=== PATIENT | female | born 1960 | race Caucasian/White ===

== ENCOUNTER 2017-02-20 20:46 | Emergency (ER) | payer OTHER ==
[~2017-02-20] VITALS: Ht 162.6 cm; Wt 63.6 kg
[~2017-02-20 20:46] MED LIST: ALLO100T PO; ATEN100T PO; ATOR40TA28 PO; CLOP75 PO; FAMO20 PO; FISH OIL/SALMO500 MG PO; FOLI1 PO; GEMF600T3 PO; NIAC100T3 PO; SERT50TA PO; SEVEC800 PO; SODI650T PO; VITAD1000 PO
[2017-02-20] MEDS ORDERED: FERR-89 PO (21:07)
[2017-02-20] MEDS ORDERED: FLUT16H NASAL (21:07)
[2017-02-20] MEDS ORDERED: COMB5OS OU (21:07)
[2017-02-20 21:08] LABS: GLUCOSE,POINT OF CARE 166 MG/DL (70-110)
[2017-02-20 21:58] LABS: INFLUENZA TYPE A NEGATIVE FOR TYPE A (NEGATIVE); INFLUENZA TYPE B NEGATIVE FOR TYPE B (NEGATIVE)
[2017-02-21] MEDS ORDERED: ONDANSETRON HCL 4 MG TABLET PO ONE (02:45)
[2017-02-21] MEDS ORDERED: BENZONATATE 100 MG CAPSULE PO ONE (02:45)
[2017-02-21 03:30] VITALS: BP 133/76
[2017-02-21] MEDS ORDERED: AZITHROMYCIN 250 MG TABLET PO ONE (03:30)
== END 2017-02-21 04:25 | disposition home or self-care (01) ==
LOC: EMS 20:47
DX: J40 Bronchitis, not specified as acute or chronic (principal); I12.0 Hypertensive chronic kidney disease with stage 5 chronic kidney disease or end stage renal disease; E11.22 Type 2 diabetes mellitus with diabetic chronic kidney disease; N18.6 End stage renal disease; Z99.2 Dependence on renal dialysis; Z88.1 Allergy status to other antibiotic agents; Z88.8 Allergy status to other drugs, medicaments and biological substances
CPT/HCPCS: 71045; 82962; 87804; 99285; Q0162

== ENCOUNTER 2017-02-25 17:37 | Inpatient (IN) | payer OTHER ==
[~2017-02-25] VITALS: Ht 167.6 cm; Wt 65.0 kg
[~2017-02-25 17:37] MED LIST changes: -ATEN100T PO; -CLOP75 PO; +COMB5OS OU; -FAMO20 PO; +FERR-89 PO; -FISH OIL/SALMO500 MG PO; +FLUT16H NASAL; -GEMF600T3 PO; -NIAC100T3 PO; -SEVEC800 PO
[2017-02-25] MEDS ORDERED: SODIUM CHLORIDE 0.9% 1,000 ML IV ONE ×2 (19:00→20:45)
[2017-02-25] MEDS ORDERED: ONDANSETRON HCL 4 MG/2 ML VIAL IVP ONE (19:00)
[2017-02-25 20:06] LABS: HEMOGLOBIN 9.1 g/dL (12.0-16.0); MEAN CORPUSCULAR HEMOGLOBIN 31.2 pg (26.0-34.0); MEAN CORPUSCULAR HGB CONC 33.7 G/dL (31.0-37.0); MEAN CORPUSCULAR VOLUME 93 fL (80-100); PLATELET COUNT (AUTO) 626 K/uL (150-450); RED BLOOD CELL COUNT(AUTO) 2.91 MIL/uL (4.00-5.20); RED CELL DISTRIBUTION WIDTH 15.5 % (11.5-14.5)
[2017-02-25] MEDS ORDERED: CefTRIAXone 1 GM/DEXTROSE 50 ML IV ONE (20:15)
[2017-02-25] MEDS ORDERED: MetroNIDAZOLE 500 MG/NACL 100 ML IV ONE (20:15)
[2017-02-25 20:47] LABS: CALCIUM, TOTAL 9.9 mg/dL (8.8-10.5); CREATININE 5.06 mg/dL (0.60-1.30); POTASSIUM 3.4 mmol/L (3.5-5.1)
[2017-02-25 20:48] LABS: ALBUMIN 2.1 g/dL (3.4-5.0); TOTAL PROTEIN, SERUM 7.8 g/dL (6.4-8.2)
[2017-02-25 21:22] LABS: BAND NEUTROPHILS % (MANUAL) 19 % (1-5); LYMPHOCYTES % (MANUAL) 5 % (22-44); MONOCYTES % (MANUAL) 4 % (2-9); SEGMENTED NEUTROPHILS % 72 % (40-70)
[2017-02-25 21:23] LABS: WBC MORPHOLOGY TOXIC GRANULATION
[2017-02-25] MEDS ORDERED: SODIUM CHLORIDE 0.9% 250 ML IV ONE (21:25)
[2017-02-25 21:44] VITALS: BP 121/61
[2017-02-26 00:08] LABS: GLUCOMETER DEV NAME(LOC) 6N 2D; GLUCOSE,POINT OF CARE 141 MG/DL (70-110)
[2017-02-26] MEDS: BRIMONIDINE/TIMOLOL 0.2-0.5% 5 ML OPHTHALMIC SOLUTION OU SCH ×3 (01:45→20:49)
[2017-02-26] MEDS ORDERED: OxyCODONE HCL/ACETAMINOPHEN 5-325 MG TABLET PO PRN (01:45)
[2017-02-26] MEDS: DOCUSATE SODIUM 100 MG CAPSULE PO SCH ×3 (01:45→20:49)
[2017-02-26] MEDS ORDERED: 0.9% SODIUM CHLORIDE 10 ML SYRINGE IVP PRN (01:45)
[2017-02-26] MEDS ORDERED: ONDANSETRON HCL 4 MG/2 ML VIAL IVP PRN (01:45)
[2017-02-26] MEDS ORDERED: PIPERACILLIN SODIUM/TAZOBACTAM 0.75 GM in DEXTROSE 5%-WATER 50 ML IV PRN (02:30)
[2017-02-26] MEDS ORDERED: VANCOMYCIN HCL 1 GM/D5% WATER 200 ML IV PRN (02:30)
[2017-02-26] MEDS ORDERED: VANCOMYCIN HCL 1.25 GM in DEXTROSE 5%-WATER 250 ML IV ONE (03:00)
[2017-02-26 03:37] VITALS: BP 105/59
[2017-02-26] MEDS ORDERED: PIPERACILLIN SODIUM/TAZOBACTAM 2.25 GM in DEXTROSE 5%-WATER 50 ML IV SCH (06:00)
[2017-02-26 06:13] LABS: GLUCOMETER DEV NAME(LOC) 6N 1E; GLUCOSE,POINT OF CARE 145 MG/DL (70-110)
[2017-02-26 07:44] VITALS: BP 113/68
[2017-02-26] MEDS ORDERED: SODIUM BICARBONATE 650 MG TABLET PO SCH (09:00)
[2017-02-26] MEDS: ATORVASTATIN CALCIUM 40 MG TABLET PO SCH (09:16)
[2017-02-26] MEDS: PANTOPRAZOLE SODIUM 40 MG/VIAL IVP SCH (09:16)
[2017-02-26] MEDS: FERROUS SULFATE 325 MG EC TABLET PO SCH (09:16)
[2017-02-26] MEDS: CHOLECALCIFEROL (VIT D3) 1,000 UNITS TABLET PO SCH (09:16)
[2017-02-26] MEDS: ALLOPURINOL 100 MG TABLET PO SCH (09:17)
[2017-02-26] MEDS: FLUTICASONE PROPIONATE 50 MCG/SPRAY 16 GM NASAL SPRAY NASAL SCH (09:17)
[2017-02-26] MEDS: SERTRALINE HCL 50 MG TABLET PO SCH (09:17)
[2017-02-26 11:27] VITALS: BP 86/44
[2017-02-26] MEDS ORDERED: POTASSIUM CHL 20 MEQ/0.9% NS 500 ML IV ONE (13:30)
[2017-02-26] MEDS ORDERED: DOXERCALCIFEROL 4 MCG/2 ML AMP IVP SCH (13:30)
[2017-02-26 15:24] VITALS: BP 105/60
[2017-02-26] MEDS: PIPERACILLIN SODIUM/TAZOBACTAM 2.25 GM in DEXTROSE 5%-WATER 50 ML IV SCH ×2 (15:57→22:12)
[2017-02-26 16:58] LABS: GLUCOMETER DEV NAME(LOC) 5N 2R; GLUCOSE,POINT OF CARE 191 MG/DL (70-110)
[2017-02-26 19:43] VITALS: BP 103/58
[2017-02-26 23:35] VITALS: BP 97/57
[2017-02-27 00:42] LABS: GLUCOMETER DEV NAME(LOC) 6N 1E; GLUCOSE,POINT OF CARE 177 MG/DL (70-110)
[2017-02-27 04:27] VITALS: BP 113/62
[2017-02-27] MEDS: PIPERACILLIN SODIUM/TAZOBACTAM 2.25 GM in DEXTROSE 5%-WATER 50 ML IV SCH ×3 (05:02→22:46)
[2017-02-27] MEDS ORDERED: SODIUM CHLORIDE 0.9% 250 ML IV ONE (06:12)
[2017-02-27 06:46] LABS: HEMATOCRIT 22.1 % (36-46); HEMOGLOBIN 7.3 g/dL (12.0-16.0); MEAN CORPUSCULAR HEMOGLOBIN 30.9 pg (26.0-34.0); MEAN CORPUSCULAR HGB CONC 33.1 G/dL (31.0-37.0); MEAN CORPUSCULAR VOLUME 93 fL (80-100); PLATELET COUNT (AUTO) 592 K/uL (150-450); RED BLOOD CELL COUNT(AUTO) 2.37 MIL/uL (4.00-5.20); RED CELL DISTRIBUTION WIDTH 15.5 % (11.5-14.5)
[2017-02-27 07:07] LABS: CALCIUM, TOTAL 9.1 mg/dL (8.8-10.5); CREATININE 6.35 mg/dL (0.60-1.30); POTASSIUM 3.8 mmol/L (3.5-5.1); VANCOMYCIN,RANDOM 22.7 mcg/mL (25.0-50.0)
[2017-02-27 07:26] VITALS: BP 110/74
[2017-02-27 07:37] LABS: GLUCOMETER DEV NAME(LOC) 6N 2D; GLUCOSE,POINT OF CARE 124 MG/DL (70-110)
[2017-02-27] MEDS: SERTRALINE HCL 50 MG TABLET PO SCH (08:28)
[2017-02-27] MEDS: PANTOPRAZOLE SODIUM 40 MG/VIAL IVP SCH (08:28)
[2017-02-27] MEDS: CHOLECALCIFEROL (VIT D3) 1,000 UNITS TABLET PO SCH (08:28)
[2017-02-27] MEDS: ALLOPURINOL 100 MG TABLET PO SCH (08:28)
[2017-02-27] MEDS: ATORVASTATIN CALCIUM 40 MG TABLET PO SCH (08:28)
[2017-02-27] MEDS: FLUTICASONE PROPIONATE 50 MCG/SPRAY 16 GM NASAL SPRAY NASAL SCH (08:28)
[2017-02-27] MEDS: BRIMONIDINE/TIMOLOL 0.2-0.5% 5 ML OPHTHALMIC SOLUTION OU SCH ×2 (08:29→19:49)
[2017-02-27] MEDS: FERROUS SULFATE 325 MG EC TABLET PO SCH (08:29)
[2017-02-27] MEDS: DOCUSATE SODIUM 100 MG CAPSULE PO SCH ×2 (08:29→19:48)
[2017-02-27 08:46] LABS: BAND NEUTROPHILS % (MANUAL) 5 % (1-5); BASOPHILS % (MANUAL) 1 % (0-2); LYMPHOCYTES % (MANUAL) 5 % (22-44); MONOCYTES % (MANUAL) 2 % (2-9); REACTIVE LYMPHOCYTES 1 % (0-0); SEGMENTED NEUTROPHILS % 86 % (40-70); WBC MORPHOLOGY TOXIC GRANULATION
[2017-02-27 15:34] VITALS: BP 114/60
[2017-02-27] MEDS ORDERED: LIDOCAINE HCL/PF 1% 2 ML VIAL INJ ONE (17:36)
[2017-02-27 19:48] LABS: GLUCOMETER DEV NAME(LOC) 6N 2D; GLUCOSE,POINT OF CARE 168 MG/DL (70-110)
[2017-02-27 20:10] VITALS: BP 109/57
[2017-02-27 20:43] VITALS: BP 126/87
[2017-02-27 20:57] LABS: GLUCOMETER DEV NAME(LOC) 6N 1E; GLUCOSE,POINT OF CARE 175 MG/DL (70-110)
[2017-02-27 23:39] VITALS: BP 114/59
[2017-02-28] VITALS (12 sets, daily range): BP systolic 85–126; BP diastolic 46–63
[2017-02-28] MEDS ORDERED: SODIUM CHLORIDE 0.9% 500 ML IV ONE (00:26)
[2017-02-28] MEDS: OxyCODONE HCL/ACETAMINOPHEN 5-325 MG TABLET PO PRN (05:00)
[2017-02-28] MEDS: PIPERACILLIN SODIUM/TAZOBACTAM 2.25 GM in DEXTROSE 5%-WATER 50 ML IV SCH ×3 (05:37→22:31)
[2017-02-28 07:03] LABS: GLUCOMETER DEV NAME(LOC) 5N 2R; GLUCOSE,POINT OF CARE 120 MG/DL (70-110)
[2017-02-28] MEDS ORDERED: VANCOMYCIN HCL 1 GM/D5% WATER 200 ML IV ONE (08:00)
[2017-02-28] MEDS: PANTOPRAZOLE SODIUM 40 MG/VIAL IVP SCH (08:32)
[2017-02-28] MEDS: BRIMONIDINE/TIMOLOL 0.2-0.5% 5 ML OPHTHALMIC SOLUTION OU SCH ×2 (08:34→19:59)
[2017-02-28] MEDS: FLUTICASONE PROPIONATE 50 MCG/SPRAY 16 GM NASAL SPRAY NASAL SCH (08:34)
[2017-02-28] MEDS: DOCUSATE SODIUM 100 MG CAPSULE PO SCH ×2 (09:00→20:00)
[2017-02-28 10:39] LABS: BASOPHILS % (AUTO) 0.1 % (0.0-2.0); EOSINOPHILS % (AUTO) 0 % (1.0-6.0); LYMPHOCYTES # (AUTO) 0.8 K/uL (1.0-4.8); LYMPHOCYTES % (AUTO) 4.3 % (22.0-44.0); MEAN CORPUSCULAR HEMOGLOBIN 31.3 pg (26.0-34.0); MEAN CORPUSCULAR HGB CONC 32.9 G/dL (31.0-37.0); MEAN CORPUSCULAR VOLUME 95 fL (80-100); MONOCYTES # (AUTO) 0.8 K/uL (0.1-1.0); MONOCYTES % (AUTO) 4.6 % (2.0-9.0); NEUTROPHILS # (AUTO) 16.8 K/uL (1.8-7.7); PLATELET COUNT (AUTO) 501 K/uL (150-450); RED BLOOD CELL COUNT(AUTO) 2.07 MIL/uL (4.00-5.20); RED CELL DISTRIBUTION WIDTH 15.5 % (11.5-14.5)
[2017-02-28 10:51] LABS: HEMATOCRIT 19.7 % (36-46); HEMOGLOBIN 6.5 g/dL (12.0-16.0)
[2017-02-28 11:53] LABS: GLUCOMETER DEV NAME(LOC) 6N 2D; GLUCOSE,POINT OF CARE 126 MG/DL (70-110)
[2017-02-28] MEDS: ALLOPURINOL 100 MG TABLET PO SCH (16:46)
[2017-02-28] MEDS: CHOLECALCIFEROL (VIT D3) 1,000 UNITS TABLET PO SCH (16:46)
[2017-02-28] MEDS: ATORVASTATIN CALCIUM 40 MG TABLET PO SCH (16:47)
[2017-02-28] MEDS: FERROUS SULFATE 325 MG EC TABLET PO SCH (16:47)
[2017-02-28] MEDS: SERTRALINE HCL 50 MG TABLET PO SCH (16:47)
[2017-02-28 17:38] LABS: GLUCOMETER DEV NAME(LOC) 6N 2D; GLUCOSE,POINT OF CARE 150 MG/DL (70-110)
[2017-03-01] VITALS (10 sets, daily range): BP systolic 95–143; BP diastolic 53–77
[2017-03-01] MEDS: ACETAMINOPHEN 325 MG TABLET PO PRN ×3 (00:14→23:42)
[2017-03-01] MEDS: PIPERACILLIN SODIUM/TAZOBACTAM 2.25 GM in DEXTROSE 5%-WATER 50 ML IV SCH ×3 (05:35→21:29)
[2017-03-01 06:38] LABS: GLUCOMETER DEV NAME(LOC) 6N 2D; GLUCOSE,POINT OF CARE 117 MG/DL (70-110)
[2017-03-01 06:43] LABS: HEMOGLOBIN 7.5 g/dL (12.0-16.0); MEAN CORPUSCULAR HEMOGLOBIN 30.6 pg (26.0-34.0); MEAN CORPUSCULAR HGB CONC 32.8 G/dL (31.0-37.0); MEAN CORPUSCULAR VOLUME 93 fL (80-100); PLATELET COUNT (AUTO) 537 K/uL (150-450); RED BLOOD CELL COUNT(AUTO) 2.46 MIL/uL (4.00-5.20); RED CELL DISTRIBUTION WIDTH 17.6 % (11.5-14.5)
[2017-03-01 06:53] LABS: INR 2.3 (0.9-1.1); PROTHROMBIN TIME 24.8 SEC (9.4-11.6)
[2017-03-01 07:04] LABS: % IRON SATURATION 15.8 % (22-44)
[2017-03-01 07:38] LABS: GLUCOMETER DEV NAME(LOC) 5N 2R; GLUCOSE,POINT OF CARE 143 MG/DL (70-110)
[2017-03-01] MEDS ORDERED: SODIUM CHLORIDE 0.9% 1,000 ML IV ONE (08:19)
[2017-03-01 10:44] LABS: BAND NEUTROPHILS % (MANUAL) 6 % (1-5); EOSINOPHILS % (MANUAL) 1 % (1-6); LYMPHOCYTES % (MANUAL) 2 % (22-44); MONOCYTES % (MANUAL) 5 % (2-9); SEGMENTED NEUTROPHILS % 86 % (40-70)
[2017-03-01] MEDS: ATORVASTATIN CALCIUM 40 MG TABLET PO SCH (14:59)
[2017-03-01] MEDS: PANTOPRAZOLE SODIUM 40 MG/VIAL IVP SCH (14:59)
[2017-03-01] MEDS: CHOLECALCIFEROL (VIT D3) 1,000 UNITS TABLET PO SCH (14:59)
[2017-03-01] MEDS: ALLOPURINOL 100 MG TABLET PO SCH (14:59)
[2017-03-01] MEDS: FERROUS SULFATE 325 MG EC TABLET PO SCH (14:59)
[2017-03-01] MEDS: FLUTICASONE PROPIONATE 50 MCG/SPRAY 16 GM NASAL SPRAY NASAL SCH (15:00)
[2017-03-01] MEDS: BRIMONIDINE/TIMOLOL 0.2-0.5% 5 ML OPHTHALMIC SOLUTION OU SCH ×2 (15:01→20:04)
[2017-03-01] MEDS: SERTRALINE HCL 50 MG TABLET PO SCH (15:02)
[2017-03-01] MEDS: EPOETIN ALFA 10,000 UNITS/ML 2 ML VIAL SQ SCH (15:02)
[2017-03-01] MEDS: DOCUSATE SODIUM 100 MG CAPSULE PO SCH ×2 (15:05→20:03)
[2017-03-01] MEDS ORDERED: SODIUM CHLORIDE 0.9% 250 ML IV ONE (15:47)
[2017-03-01 16:33] LABS: GLUCOMETER DEV NAME(LOC) 6N 1E; GLUCOSE,POINT OF CARE 78 MG/DL (70-110)
[2017-03-01] MEDS ORDERED: GuaiFENesin [SUGAR-FREE] 200 MG/10 ML SOLUTION UDCUP PO SCH (18:00)
[2017-03-01] MEDS ORDERED: LIDOCAINE HCL/PF 1% 2 ML VIAL IM ONE (18:15)
[2017-03-01 19:38] LABS: GLUCOMETER DEV NAME(LOC) 6N 2D; GLUCOSE,POINT OF CARE 125 MG/DL (70-110)
[2017-03-01] MEDS: GuaiFENesin [SUGAR-FREE] 200 MG/10 ML SOLUTION UDCUP PO PRN (21:08)
[2017-03-01] MEDS ORDERED: SODIUM CHLORIDE 0.9% 500 ML IV ONE (21:20)
[2017-03-01 21:22] LABS: GLUCOMETER DEV NAME(LOC) 6N 2D; GLUCOSE,POINT OF CARE 174 MG/DL (70-110)
[2017-03-02] VITALS (11 sets, daily range): BP systolic 92–128; BP diastolic 43–66
[2017-03-02] MEDS: PIPERACILLIN SODIUM/TAZOBACTAM 2.25 GM in DEXTROSE 5%-WATER 50 ML IV SCH ×3 (05:39→21:35)
[2017-03-02 07:17] LABS: GLUCOMETER DEV NAME(LOC) 6N 1E; GLUCOSE,POINT OF CARE 143 MG/DL (70-110)
[2017-03-02 07:18] LABS: INR 2.3 (0.9-1.1); PROTHROMBIN TIME 24.1 SEC (9.4-11.6)
[2017-03-02] MEDS: BRIMONIDINE/TIMOLOL 0.2-0.5% 5 ML OPHTHALMIC SOLUTION OU SCH ×2 (09:04→20:43)
[2017-03-02] MEDS: GuaiFENesin [SUGAR-FREE] 200 MG/10 ML SOLUTION UDCUP PO PRN ×2 (09:04→21:35)
[2017-03-02] MEDS: FLUTICASONE PROPIONATE 50 MCG/SPRAY 16 GM NASAL SPRAY NASAL SCH (09:04)
[2017-03-02] MEDS: PANTOPRAZOLE SODIUM 40 MG/VIAL IVP SCH (09:04)
[2017-03-02] MEDS: CHOLECALCIFEROL (VIT D3) 1,000 UNITS TABLET PO SCH (09:05)
[2017-03-02] MEDS: FERROUS SULFATE 325 MG EC TABLET PO SCH (09:05)
[2017-03-02] MEDS: ALLOPURINOL 100 MG TABLET PO SCH (09:05)
[2017-03-02] MEDS: SERTRALINE HCL 50 MG TABLET PO SCH (09:05)
[2017-03-02] MEDS: ATORVASTATIN CALCIUM 40 MG TABLET PO SCH (09:06)
[2017-03-02] MEDS: OxyCODONE HCL/ACETAMINOPHEN 5-325 MG TABLET PO PRN (09:06)
[2017-03-02] MEDS: DOCUSATE SODIUM 100 MG CAPSULE PO SCH ×2 (09:06→20:43)
[2017-03-02 11:52] LABS: GLUCOMETER DEV NAME(LOC) 5N 2R; GLUCOSE,POINT OF CARE 147 MG/DL (70-110)
[2017-03-02] MEDS: PHYTONADIONE 10 MG/1 ML AMP IM SCH (18:32)
[2017-03-02 20:07] LABS: GLUCOMETER DEV NAME(LOC) 6N 1E; GLUCOSE,POINT OF CARE 113 MG/DL (70-110)
[2017-03-02] MEDS: ACETAMINOPHEN 325 MG TABLET PO PRN (21:32)
[2017-03-02 22:12] LABS: GLUCOMETER DEV NAME(LOC) 5N 2R; GLUCOSE,POINT OF CARE 152 MG/DL (70-110)
[2017-03-02] MEDS ORDERED: SODIUM CHLORIDE 0.9% 500 ML IV ONE (22:28)
[2017-03-03] VITALS (20 sets, daily range): BP systolic 85–135; BP diastolic 49–77
[2017-03-03] MEDS: PIPERACILLIN SODIUM/TAZOBACTAM 2.25 GM in DEXTROSE 5%-WATER 50 ML IV SCH ×3 (05:14→22:30)
[2017-03-03 05:57] LABS: GLUCOMETER DEV NAME(LOC) 5N 2R; GLUCOSE,POINT OF CARE 98 MG/DL (70-110)
[2017-03-03 06:49] LABS: INR 1.3 (0.9-1.1); PROTHROMBIN TIME 13.6 SEC (9.4-11.6)
[2017-03-03 07:03] LABS: BASOPHILS % (AUTO) 0.2 % (0.0-2.0); EOSINOPHILS % (AUTO) 0.9 % (1.0-6.0); LYMPHOCYTES # (AUTO) 0.9 K/uL (1.0-4.8); LYMPHOCYTES % (AUTO) 4.7 % (22.0-44.0); MEAN CORPUSCULAR HGB CONC 32.8 G/dL (31.0-37.0); MEAN CORPUSCULAR VOLUME 92 fL (80-100); MONOCYTES # (AUTO) 0.7 K/uL (0.1-1.0); MONOCYTES % (AUTO) 3.7 % (2.0-9.0); PLATELET COUNT (AUTO) 620 K/uL (150-450); RED BLOOD CELL COUNT(AUTO) 2.27 MIL/uL (4.00-5.20); RED CELL DISTRIBUTION WIDTH 16.7 % (11.5-14.5)
[2017-03-03 07:09] LABS: HEMOGLOBIN 6.8 g/dL (12.0-16.0)
[2017-03-03 07:10] LABS: HEMATOCRIT 20.8 % (36-46); NEUTROPHILS % (AUTO) 90.5 % (40.0-70.0)
[2017-03-03 07:16] LABS: ALBUMIN 1.6 g/dL (3.4-5.0); BILIRUBIN,TOTAL 0.6 mg/dL (0.1-1.0); CALCIUM, TOTAL 9.2 mg/dL (8.8-10.5); CREATININE 4.74 mg/dL (0.60-1.30); POTASSIUM 3.3 mmol/L (3.5-5.1); TOTAL PROTEIN, SERUM 6.2 g/dL (6.4-8.2)
[2017-03-03 08:09] LABS: VANCOMYCIN,RANDOM 17.6 mcg/mL (25.0-50.0)
[2017-03-03] MEDS ORDERED: MIDAZOLAM HCL 2 MG/2 ML VIAL ONE (08:42)
[2017-03-03] MEDS ORDERED: FentaNYL CITRATE-PF 100 MCG/2 ML VIAL ONE (08:43)
[2017-03-03] MEDS: PHYTONADIONE 10 MG/1 ML AMP IM SCH (09:00)
[2017-03-03] MEDS ORDERED: MIDAZOLAM HCL 2 MG/2 ML VIAL IVP ONE (09:55)
[2017-03-03] MEDS ORDERED: SODIUM CHLORIDE 0.9% 500 ML IV ONE (10:05)
[2017-03-03] MEDS: FLUTICASONE PROPIONATE 50 MCG/SPRAY 16 GM NASAL SPRAY NASAL SCH (10:51)
[2017-03-03] MEDS: CHOLECALCIFEROL (VIT D3) 1,000 UNITS TABLET PO SCH (10:51)
[2017-03-03] MEDS: PANTOPRAZOLE SODIUM 40 MG/VIAL IVP SCH (10:52)
[2017-03-03] MEDS: BRIMONIDINE/TIMOLOL 0.2-0.5% 5 ML OPHTHALMIC SOLUTION OU SCH ×2 (10:52→20:07)
[2017-03-03] MEDS: ATORVASTATIN CALCIUM 40 MG TABLET PO SCH (10:52)
[2017-03-03] MEDS: ALLOPURINOL 100 MG TABLET PO SCH (10:52)
[2017-03-03] MEDS: SERTRALINE HCL 50 MG TABLET PO SCH (10:52)
[2017-03-03] MEDS: FERROUS SULFATE 325 MG EC TABLET PO SCH (10:52)
[2017-03-03] MEDS: EPOETIN ALFA 10,000 UNITS/ML 2 ML VIAL SQ SCH (10:54)
[2017-03-03] MEDS: DOCUSATE SODIUM 100 MG CAPSULE PO SCH ×2 (10:54→20:07)
[2017-03-03 11:27] LABS: GLUCOMETER DEV NAME(LOC) 6N 1E; GLUCOSE,POINT OF CARE 93 MG/DL (70-110)
[2017-03-03 11:44] LABS: PLATELET MORPHOLOGY COMMENT INCREASED
[2017-03-03] MEDS: GuaiFENesin [SUGAR-FREE] 200 MG/10 ML SOLUTION UDCUP PO PRN ×2 (11:55→20:07)
[2017-03-03] MEDS ORDERED: LIDOCAINE HCL/PF 1% 2 ML VIAL ONE (12:00)
[2017-03-03] MEDS ORDERED: MANNITOL 25%-12.5 GM/50 ML VIAL IVP PRN (15:15)
[2017-03-03] MEDS ORDERED: VANCOMYCIN HCL 1 GM/D5% WATER 200 ML IV ONE (18:00)
[2017-03-03] MEDS ORDERED: MANNITOL 25%-12.5 GM/50 ML VIAL IVP ONE (18:21)
[2017-03-03 18:47] LABS: GLUCOMETER DEV NAME(LOC) 6N 1E; GLUCOSE,POINT OF CARE 156 MG/DL (70-110)
[2017-03-03] MEDS ORDERED: FentaNYL CITRATE-PF 100 MCG/2 ML VIAL IVP ONE (19:55)
[2017-03-03 21:37] LABS: GLUCOMETER DEV NAME(LOC) 5N 2R; GLUCOSE,POINT OF CARE 202 MG/DL (70-110)
[2017-03-03] MEDS ORDERED: CefTRIAXone SODIUM 1 GM in DEXTROSE 5%-WATER 10 ML IV SCH (22:00)
[2017-03-04] VITALS (7 sets, daily range): BP systolic 107–123; BP diastolic 58–85
[2017-03-04] MEDS ORDERED: MetroNIDAZOLE 500 MG TABLET PO SCH
[2017-03-04] MEDS: PIPERACILLIN SODIUM/TAZOBACTAM 2.25 GM in DEXTROSE 5%-WATER 50 ML IV SCH ×3 (05:35→22:04)
[2017-03-04 05:47] LABS: BASOPHILS % (AUTO) 0.5 % (0.0-2.0); HEMATOCRIT 28.4 % (36-46); HEMOGLOBIN 9.3 g/dL (12.0-16.0); LYMPHOCYTES % (AUTO) 7.3 % (22.0-44.0); MEAN CORPUSCULAR HEMOGLOBIN 29.6 pg (26.0-34.0); MEAN CORPUSCULAR HGB CONC 32.8 G/dL (31.0-37.0); MEAN CORPUSCULAR VOLUME 90 fL (80-100); MONOCYTES # (AUTO) 0.5 K/uL (0.1-1.0); MONOCYTES % (AUTO) 3.9 % (2.0-9.0); PLATELET COUNT (AUTO) 518 K/uL (150-450); RED BLOOD CELL COUNT(AUTO) 3.15 MIL/uL (4.00-5.20); RED CELL DISTRIBUTION WIDTH 16.7 % (11.5-14.5)
[2017-03-04 05:57] LABS: GLUCOMETER DEV NAME(LOC) 5N 2R; GLUCOSE,POINT OF CARE 153 MG/DL (70-110)
[2017-03-04 06:22] LABS: ALBUMIN 1.4 g/dL (3.4-5.0); BILIRUBIN,TOTAL 0.4 mg/dL (0.1-1.0); CALCIUM, TOTAL 8.8 mg/dL (8.8-10.5); CREATININE 3.3 mg/dL (0.60-1.30); POTASSIUM 3.6 mmol/L (3.5-5.1); TOTAL PROTEIN, SERUM 6.1 g/dL (6.4-8.2)
[2017-03-04 06:41] LABS: NEUTROPHILS % (AUTO) 86.3 % (40.0-70.0)
[2017-03-04] MEDS: FERROUS SULFATE 325 MG EC TABLET PO SCH (08:31)
[2017-03-04] MEDS: ATORVASTATIN CALCIUM 40 MG TABLET PO SCH (08:31)
[2017-03-04] MEDS: CHOLECALCIFEROL (VIT D3) 1,000 UNITS TABLET PO SCH (08:31)
[2017-03-04] MEDS: FLUTICASONE PROPIONATE 50 MCG/SPRAY 16 GM NASAL SPRAY NASAL SCH (08:32)
[2017-03-04] MEDS: BRIMONIDINE/TIMOLOL 0.2-0.5% 5 ML OPHTHALMIC SOLUTION OU SCH ×2 (08:32→20:48)
[2017-03-04] MEDS: PANTOPRAZOLE SODIUM 40 MG/VIAL IVP SCH (08:32)
[2017-03-04] MEDS: SERTRALINE HCL 50 MG TABLET PO SCH (08:33)
[2017-03-04] MEDS: ALLOPURINOL 100 MG TABLET PO SCH (08:33)
[2017-03-04] MEDS: GuaiFENesin [SUGAR-FREE] 200 MG/10 ML SOLUTION UDCUP PO PRN (08:33)
[2017-03-04] MEDS: DOCUSATE SODIUM 100 MG CAPSULE PO SCH ×2 (08:36→20:48)
[2017-03-04 12:48] LABS: GLUCOMETER DEV NAME(LOC) 5N 2R; GLUCOSE,POINT OF CARE 207 MG/DL (70-110)
[2017-03-04] MEDS: VITAMIN B COMP/VIT C/FOLIC ACID CAPSULE PO SCH (16:01)
[2017-03-04] MEDS ORDERED: DEXTROSE 50%-WATER 25 GM/50 ML SYRINGE IVP PRN (18:00)
[2017-03-04] MEDS: INSULIN ASPART 100 UNITS/ML SQ PRN ×2 (19:14→22:11)
[2017-03-05 03:00] VITALS: BP 134/70
[2017-03-05 03:27] LABS: GLUCOMETER DEV NAME(LOC) 6N 2D; GLUCOSE,POINT OF CARE 185 MG/DL (70-110)
[2017-03-05] MEDS: PIPERACILLIN SODIUM/TAZOBACTAM 2.25 GM in DEXTROSE 5%-WATER 50 ML IV SCH ×3 (06:08→21:06)
[2017-03-05] MEDS: INSULIN ASPART 100 UNITS/ML SQ PRN ×4 (06:10→20:42)
[2017-03-05 06:26] LABS: BASOPHILS % (AUTO) 0.2 % (0.0-2.0); EOSINOPHILS % (AUTO) 2.4 % (1.0-6.0); HEMATOCRIT 28.8 % (36-46); HEMOGLOBIN 9.6 g/dL (12.0-16.0); LYMPHOCYTES # (AUTO) 1.1 K/uL (1.0-4.8); LYMPHOCYTES % (AUTO) 8.5 % (22.0-44.0); MEAN CORPUSCULAR HGB CONC 33.4 G/dL (31.0-37.0); MEAN CORPUSCULAR VOLUME 90 fL (80-100); MONOCYTES # (AUTO) 0.7 K/uL (0.1-1.0); MONOCYTES % (AUTO) 5.7 % (2.0-9.0); NEUTROPHILS # (AUTO) 10.5 K/uL (1.8-7.7); NEUTROPHILS % (AUTO) 83.2 % (40.0-70.0); PLATELET COUNT (AUTO) 492 K/uL (150-450); RED CELL DISTRIBUTION WIDTH 16.2 % (11.5-14.5)
[2017-03-05 06:43] LABS: ALBUMIN 1.6 g/dL (3.4-5.0); BILIRUBIN,TOTAL 0.4 mg/dL (0.1-1.0); CREATININE 4.75 mg/dL (0.60-1.30); POTASSIUM 3.9 mmol/L (3.5-5.1); TOTAL PROTEIN, SERUM 6.3 g/dL (6.4-8.2)
[2017-03-05 07:54] LABS: GLUCOMETER DEV NAME(LOC) 6N 1E; GLUCOSE,POINT OF CARE 144 MG/DL (70-110)
[2017-03-05 07:54] LABS: GLUCOMETER DEV NAME(LOC) 6N 1E; GLUCOSE,POINT OF CARE 241 MG/DL (70-110)
[2017-03-05 07:57] VITALS: BP 119/68
[2017-03-05] MEDS ORDERED: SODIUM CHLORIDE 0.9% 2,000 ML IV ONE (09:07)
[2017-03-05] MEDS: BRIMONIDINE/TIMOLOL 0.2-0.5% 5 ML OPHTHALMIC SOLUTION OU SCH ×2 (09:18→20:37)
[2017-03-05] MEDS: FLUTICASONE PROPIONATE 50 MCG/SPRAY 16 GM NASAL SPRAY NASAL SCH (09:18)
[2017-03-05 14:02] LABS: GLUCOMETER DEV NAME(LOC) 6N 2D; GLUCOSE,POINT OF CARE 161 MG/DL (70-110)
[2017-03-05] MEDS: SERTRALINE HCL 50 MG TABLET PO SCH (14:14)
[2017-03-05] MEDS: VITAMIN B COMP/VIT C/FOLIC ACID CAPSULE PO SCH (14:14)
[2017-03-05] MEDS: ALLOPURINOL 100 MG TABLET PO SCH (14:14)
[2017-03-05] MEDS: DOCUSATE SODIUM 100 MG CAPSULE PO SCH ×2 (14:14→20:37)
[2017-03-05] MEDS: FERROUS SULFATE 325 MG EC TABLET PO SCH (14:14)
[2017-03-05] MEDS: ATORVASTATIN CALCIUM 40 MG TABLET PO SCH (14:15)
[2017-03-05] MEDS: EPOETIN ALFA 10,000 UNITS/ML 2 ML VIAL SQ SCH (14:15)
[2017-03-05] MEDS: CHOLECALCIFEROL (VIT D3) 1,000 UNITS TABLET PO SCH (14:33)
[2017-03-05] MEDS: PANTOPRAZOLE SODIUM 40 MG/VIAL IVP SCH (14:34)
[2017-03-05 15:21] VITALS: BP 115/64
[2017-03-05 17:47] LABS: GLUCOMETER DEV NAME(LOC) 6N 2D; GLUCOSE,POINT OF CARE 186 MG/DL (70-110)
[2017-03-05 20:00] VITALS: BP 117/65
[2017-03-06] VITALS (7 sets, daily range): BP systolic 112–156; BP diastolic 55–75
[2017-03-06 00:37] LABS: GLUCOMETER DEV NAME(LOC) 6N 2D; GLUCOSE,POINT OF CARE 174 MG/DL (70-110)
[2017-03-06] MEDS: PIPERACILLIN SODIUM/TAZOBACTAM 2.25 GM in DEXTROSE 5%-WATER 50 ML IV SCH ×3 (05:13→21:44)
[2017-03-06 06:28] LABS: GLUCOMETER DEV NAME(LOC) 6N 1E; GLUCOSE,POINT OF CARE 119 MG/DL (70-110)
[2017-03-06 07:24] LABS: HEMATOCRIT 28.1 % (36-46); HEMOGLOBIN 9.4 g/dL (12.0-16.0); MEAN CORPUSCULAR HEMOGLOBIN 30.3 pg (26.0-34.0); MEAN CORPUSCULAR HGB CONC 33.5 G/dL (31.0-37.0); MEAN CORPUSCULAR VOLUME 90 fL (80-100); PLATELET COUNT (AUTO) 404 K/uL (150-450); RED BLOOD CELL COUNT(AUTO) 3.11 MIL/uL (4.00-5.20); RED CELL DISTRIBUTION WIDTH 15.7 % (11.5-14.5)
[2017-03-06 07:50] LABS: ALBUMIN 1.5 g/dL (3.4-5.0); BILIRUBIN,TOTAL 0.4 mg/dL (0.1-1.0); CALCIUM, TOTAL 8.8 mg/dL (8.8-10.5); CREATININE 4.79 mg/dL (0.60-1.30); POTASSIUM 4.2 mmol/L (3.5-5.1); TOTAL PROTEIN, SERUM 5.8 g/dL (6.4-8.2)
[2017-03-06] MEDS: PANTOPRAZOLE SODIUM 40 MG/VIAL IVP SCH (07:54)
[2017-03-06] MEDS: BRIMONIDINE/TIMOLOL 0.2-0.5% 5 ML OPHTHALMIC SOLUTION OU SCH ×2 (07:54→20:24)
[2017-03-06] MEDS: FERROUS SULFATE 325 MG EC TABLET PO SCH (07:54)
[2017-03-06] MEDS: FLUTICASONE PROPIONATE 50 MCG/SPRAY 16 GM NASAL SPRAY NASAL SCH (07:54)
[2017-03-06] MEDS: DOCUSATE SODIUM 100 MG CAPSULE PO SCH ×2 (07:55→20:24)
[2017-03-06] MEDS: ATORVASTATIN CALCIUM 40 MG TABLET PO SCH (07:55)
[2017-03-06] MEDS: CHOLECALCIFEROL (VIT D3) 1,000 UNITS TABLET PO SCH (07:55)
[2017-03-06] MEDS: GuaiFENesin [SUGAR-FREE] 200 MG/10 ML SOLUTION UDCUP PO PRN (07:55)
[2017-03-06] MEDS: ALLOPURINOL 100 MG TABLET PO SCH (07:55)
[2017-03-06] MEDS: VITAMIN B COMP/VIT C/FOLIC ACID CAPSULE PO SCH (07:55)
[2017-03-06] MEDS: SERTRALINE HCL 50 MG TABLET PO SCH (07:55)
[2017-03-06 10:07] LABS: BAND NEUTROPHILS % (MANUAL) 10 % (1-5); LYMPHOCYTES % (MANUAL) 13 % (22-44); METAMYELOCYTES % 1 % (0-0); MONOCYTES % (MANUAL) 2 % (2-9); SEGMENTED NEUTROPHILS % 74 % (40-70)
[2017-03-06 11:49] LABS: GLUCOMETER DEV NAME(LOC) 6N 2D; GLUCOSE,POINT OF CARE 192 MG/DL (70-110)
[2017-03-06] MEDS: INSULIN ASPART 100 UNITS/ML SQ PRN ×3 (12:02→20:51)
[2017-03-06 17:17] LABS: GLUCOMETER DEV NAME(LOC) 6N 2D; GLUCOSE,POINT OF CARE 184 MG/DL (70-110)
[2017-03-06 23:17] LABS: GLUCOMETER DEV NAME(LOC) 6N 1E; GLUCOSE,POINT OF CARE 190 MG/DL (70-110)
[2017-03-07 03:00] VITALS: BP 138/71
[2017-03-07] MEDS: PIPERACILLIN SODIUM/TAZOBACTAM 2.25 GM in DEXTROSE 5%-WATER 50 ML IV SCH ×3 (05:55→20:54)
[2017-03-07 06:27] LABS: GLUCOMETER DEV NAME(LOC) 6N 2D; GLUCOSE,POINT OF CARE 114 MG/DL (70-110)
[2017-03-07 06:54] LABS: BASOPHILS # (AUTO) 0.03 K/uL (0.00-0.20); BASOPHILS % (AUTO) 0.2 % (0.0-2.0); EOSINOPHILS % (AUTO) 0 % (1.0-6.0); HEMATOCRIT 27.9 % (36-46); HEMOGLOBIN 9.4 g/dL (12.0-16.0); LYMPHOCYTES # (AUTO) 1.2 K/uL (1.0-4.8); MEAN CORPUSCULAR HEMOGLOBIN 30.2 pg (26.0-34.0); MEAN CORPUSCULAR HGB CONC 33.5 G/dL (31.0-37.0); MEAN CORPUSCULAR VOLUME 90 fL (80-100); MONOCYTES % (AUTO) 7.8 % (2.0-9.0); NEUTROPHILS # (AUTO) 11.1 K/uL (1.8-7.7); PLATELET COUNT (AUTO) 389 K/uL (150-450); RED BLOOD CELL COUNT(AUTO) 3.09 MIL/uL (4.00-5.20); RED CELL DISTRIBUTION WIDTH 15.3 % (11.5-14.5)
[2017-03-07 07:20] LABS: ALBUMIN 1.6 g/dL (3.4-5.0); BILIRUBIN,TOTAL 0.4 mg/dL (0.1-1.0); CALCIUM, TOTAL 9.4 mg/dL (8.8-10.5); CREATININE 5.99 mg/dL (0.60-1.30); POTASSIUM 4.4 mmol/L (3.5-5.1)
[2017-03-07 08:19] VITALS: BP 134/70
[2017-03-07] MEDS: PANTOPRAZOLE SODIUM 40 MG/VIAL IVP SCH (08:55)
[2017-03-07] MEDS: FERROUS SULFATE 325 MG EC TABLET PO SCH (08:56)
[2017-03-07] MEDS: BRIMONIDINE/TIMOLOL 0.2-0.5% 5 ML OPHTHALMIC SOLUTION OU SCH ×2 (08:56→20:54)
[2017-03-07] MEDS: SERTRALINE HCL 50 MG TABLET PO SCH (08:56)
[2017-03-07] MEDS: CHOLECALCIFEROL (VIT D3) 1,000 UNITS TABLET PO SCH (08:56)
[2017-03-07] MEDS: ALLOPURINOL 100 MG TABLET PO SCH (08:56)
[2017-03-07] MEDS: FLUTICASONE PROPIONATE 50 MCG/SPRAY 16 GM NASAL SPRAY NASAL SCH (08:56)
[2017-03-07] MEDS: VITAMIN B COMP/VIT C/FOLIC ACID CAPSULE PO SCH (08:56)
[2017-03-07] MEDS: ATORVASTATIN CALCIUM 40 MG TABLET PO SCH (08:56)
[2017-03-07] MEDS: DOCUSATE SODIUM 100 MG CAPSULE PO SCH ×2 (08:57→20:55)
[2017-03-07] MEDS ORDERED: ALBUMIN HUMAN 25%-25GM/100ML 100 ML IV PRN (10:15)
[2017-03-07] MEDS: INSULIN ASPART 100 UNITS/ML SQ PRN ×2 (11:53→21:02)
[2017-03-07 12:01] VITALS: BP 127/66
[2017-03-07 12:04] LABS: GLUCOMETER DEV NAME(LOC) 6N 2D; GLUCOSE,POINT OF CARE 168 MG/DL (70-110)
[2017-03-07 15:41] VITALS: BP 131/72
[2017-03-07 17:52] LABS: GLUCOMETER DEV NAME(LOC) 6N 2D; GLUCOSE,POINT OF CARE 127 MG/DL (70-110)
[2017-03-07 20:03] VITALS: BP 145/76
[2017-03-07 22:22] LABS: GLUCOMETER DEV NAME(LOC) 6N 2D; GLUCOSE,POINT OF CARE 251 MG/DL (70-110)
[2017-03-07 23:50] VITALS: BP 119/64
[2017-03-08 04:58] VITALS: BP 146/71
[2017-03-08] MEDS: CefTRIAXone SODIUM 1 GM in DEXTROSE 5%-WATER 10 ML IV SCH (05:50)
[2017-03-08 06:27] LABS: GLUCOMETER DEV NAME(LOC) 6N 2D; GLUCOSE,POINT OF CARE 135 MG/DL (70-110)
[2017-03-08 06:52] LABS: HEMATOCRIT 27.9 % (36-46); HEMOGLOBIN 9.4 g/dL (12.0-16.0); LYMPHOCYTES % (AUTO) 6.9 % (22.0-44.0); MEAN CORPUSCULAR HEMOGLOBIN 30.3 pg (26.0-34.0); MEAN CORPUSCULAR HGB CONC 33.8 G/dL (31.0-37.0); MEAN CORPUSCULAR VOLUME 90 fL (80-100); MONOCYTES # (AUTO) 0.7 K/uL (0.1-1.0); MONOCYTES % (AUTO) 4.6 % (2.0-9.0); NEUTROPHILS # (AUTO) 12.4 K/uL (1.8-7.7); NEUTROPHILS % (AUTO) 85.5 % (40.0-70.0); PLATELET COUNT (AUTO) 390 K/uL (150-450); RED CELL DISTRIBUTION WIDTH 14.9 % (11.5-14.5)
[2017-03-08 07:28] LABS: ALBUMIN 1.7 g/dL (3.4-5.0); BILIRUBIN,TOTAL 0.4 mg/dL (0.1-1.0); CALCIUM, TOTAL 9.5 mg/dL (8.8-10.5); CREATININE 6.8 mg/dL (0.60-1.30); POTASSIUM 4.6 mmol/L (3.5-5.1); TOTAL PROTEIN, SERUM 6.1 g/dL (6.4-8.2)
[2017-03-08 07:37] VITALS: BP 147/74
[2017-03-08] MEDS: BRIMONIDINE/TIMOLOL 0.2-0.5% 5 ML OPHTHALMIC SOLUTION OU SCH ×2 (08:30→20:53)
[2017-03-08] MEDS: FLUTICASONE PROPIONATE 50 MCG/SPRAY 16 GM NASAL SPRAY NASAL SCH (08:30)
[2017-03-08] MEDS: SERTRALINE HCL 50 MG TABLET PO SCH (08:32)
[2017-03-08] MEDS: DOCUSATE SODIUM 100 MG CAPSULE PO SCH ×2 (08:32→20:53)
[2017-03-08] MEDS: ALLOPURINOL 100 MG TABLET PO SCH (08:32)
[2017-03-08] MEDS: FERROUS SULFATE 325 MG EC TABLET PO SCH (08:32)
[2017-03-08] MEDS: ATORVASTATIN CALCIUM 40 MG TABLET PO SCH (08:32)
[2017-03-08] MEDS: CHOLECALCIFEROL (VIT D3) 1,000 UNITS TABLET PO SCH (08:32)
[2017-03-08] MEDS: PANTOPRAZOLE SODIUM 40 MG/VIAL IVP SCH (08:35)
[2017-03-08] MEDS: VITAMIN B COMP/VIT C/FOLIC ACID CAPSULE PO SCH (08:35)
[2017-03-08] MEDS ORDERED: SODIUM CHLORIDE 0.9% 2,000 ML IV ONE (08:56)
[2017-03-08] MEDS ORDERED: LIDOCAINE HCL/PF 1% 2 ML VIAL INJ ONE (12:00)
[2017-03-08] MEDS ORDERED: ALBUMIN HUMAN 25%-12.5GM/50ML IV BOTTLE IV ONE (12:00)
[2017-03-08] MEDS ORDERED: VANCOMYCIN HCL 1 GM/D5% WATER 200 ML IV ONE (14:00)
[2017-03-08 14:33] LABS: GLUCOMETER DEV NAME(LOC) 6N 2D; GLUCOSE,POINT OF CARE 114 MG/DL (70-110)
[2017-03-08] MEDS: EPOETIN ALFA 10,000 UNITS/ML 2 ML VIAL SQ SCH (14:48)
[2017-03-08 15:33] VITALS: BP 138/75
[2017-03-08 17:22] LABS: GLUCOMETER DEV NAME(LOC) 6N 2D; GLUCOSE,POINT OF CARE 244 MG/DL (70-110)
[2017-03-08] MEDS: INSULIN ASPART 100 UNITS/ML SQ PRN (17:32)
[2017-03-08 19:48] VITALS: BP 150/77
[2017-03-08 23:12] LABS: GLUCOMETER DEV NAME(LOC) 6N 1E; GLUCOSE,POINT OF CARE 165 MG/DL (70-110)
[2017-03-09 00:02] VITALS: BP 127/71
[2017-03-09 05:20] VITALS: BP 136/70
[2017-03-09 05:40] LABS: BASOPHILS % (AUTO) 0.8 % (0.0-2.0); EOSINOPHILS % (AUTO) 1.2 % (1.0-6.0); HEMATOCRIT 26.5 % (36-46); HEMOGLOBIN 8.8 g/dL (12.0-16.0); LYMPHOCYTES # (AUTO) 1.6 K/uL (1.0-4.8); MEAN CORPUSCULAR HGB CONC 33.1 G/dL (31.0-37.0); MEAN CORPUSCULAR VOLUME 91 fL (80-100); MONOCYTES # (AUTO) 0.8 K/uL (0.1-1.0); MONOCYTES % (AUTO) 6.6 % (2.0-9.0); NEUTROPHILS # (AUTO) 9.8 K/uL (1.8-7.7); NEUTROPHILS % (AUTO) 78.4 % (40.0-70.0); PLATELET COUNT (AUTO) 259 K/uL (150-450); RED BLOOD CELL COUNT(AUTO) 2.92 MIL/uL (4.00-5.20); RED CELL DISTRIBUTION WIDTH 15.6 % (11.5-14.5)
[2017-03-09 05:55] LABS: ALBUMIN 1.9 g/dL (3.4-5.0); BILIRUBIN,TOTAL 0.3 mg/dL (0.1-1.0); CALCIUM, TOTAL 9.3 mg/dL (8.8-10.5); CREATININE 4.57 mg/dL (0.60-1.30); POTASSIUM 4.3 mmol/L (3.5-5.1); TOTAL PROTEIN, SERUM 6.1 g/dL (6.4-8.2)
[2017-03-09] MEDS: CefTRIAXone SODIUM 1 GM in DEXTROSE 5%-WATER 10 ML IV SCH (06:19)
[2017-03-09 06:43] LABS: GLUCOMETER DEV NAME(LOC) 6N 1E; GLUCOSE,POINT OF CARE 101 MG/DL (70-110)
[2017-03-09 07:18] VITALS: BP 131/67
[2017-03-09] MEDS: FERROUS SULFATE 325 MG EC TABLET PO SCH (08:00)
[2017-03-09] MEDS: PANTOPRAZOLE SODIUM 40 MG/VIAL IVP SCH (08:35)
[2017-03-09] MEDS: FLUTICASONE PROPIONATE 50 MCG/SPRAY 16 GM NASAL SPRAY NASAL SCH (08:35)
[2017-03-09] MEDS: BRIMONIDINE/TIMOLOL 0.2-0.5% 5 ML OPHTHALMIC SOLUTION OU SCH ×2 (08:36→20:32)
[2017-03-09] MEDS: ALLOPURINOL 100 MG TABLET PO SCH (09:00)
[2017-03-09] MEDS: DOCUSATE SODIUM 100 MG CAPSULE PO SCH ×2 (09:00→20:34)
[2017-03-09] MEDS: ATORVASTATIN CALCIUM 40 MG TABLET PO SCH (09:00)
[2017-03-09] MEDS: SERTRALINE HCL 50 MG TABLET PO SCH (09:00)
[2017-03-09] MEDS: VITAMIN B COMP/VIT C/FOLIC ACID CAPSULE PO SCH (09:00)
[2017-03-09] MEDS: CHOLECALCIFEROL (VIT D3) 1,000 UNITS TABLET PO SCH (09:00)
[2017-03-09] MEDS ORDERED: BARIUM SULFATE 0.1% SUSPENSION 450 ML BOTTLE ONE (09:14)
[2017-03-09] MEDS ORDERED: IOVERSOL 350 MG/ML 100 ML VIAL ONE (09:14)
[2017-03-09] MEDS ORDERED: 0.9% SODIUM CHLORIDE 10 ML SYRINGE IVP PRN (10:00)
[2017-03-09] MEDS ORDERED: LIDOCAINE HCL 1% 10 ML VIAL SQ ONE (10:00)
[2017-03-09 11:05] VITALS: BP 135/69
[2017-03-09 11:53] LABS: GLUCOMETER DEV NAME(LOC) 6N 1E; GLUCOSE,POINT OF CARE 115 MG/DL (70-110)
[2017-03-09 17:17] LABS: GLUCOMETER DEV NAME(LOC) 6N 1E; GLUCOSE,POINT OF CARE 170 MG/DL (70-110)
[2017-03-09] MEDS: INSULIN ASPART 100 UNITS/ML SQ PRN ×2 (18:14→20:49)
[2017-03-09 19:31] VITALS: BP 152/72
[2017-03-09 23:32] LABS: GLUCOMETER DEV NAME(LOC) 6N 2D; GLUCOSE,POINT OF CARE 176 MG/DL (70-110)
[2017-03-09 23:37] VITALS: BP 139/73
[2017-03-10 04:33] VITALS: BP 139/73
[2017-03-10] MEDS: CefTRIAXone SODIUM 1 GM in DEXTROSE 5%-WATER 10 ML IV SCH (05:15)
[2017-03-10] MEDS: INSULIN ASPART 100 UNITS/ML SQ PRN (06:18)
[2017-03-10 07:36] VITALS: BP 140/69
[2017-03-10] MEDS ORDERED: SODIUM CHLORIDE 0.9% 2,000 ML IV ONE (07:52)
[2017-03-10 08:02] LABS: GLUCOMETER DEV NAME(LOC) 6N 2D; GLUCOSE,POINT OF CARE 108 MG/DL (70-110)
[2017-03-10] MEDS: BRIMONIDINE/TIMOLOL 0.2-0.5% 5 ML OPHTHALMIC SOLUTION OU SCH ×2 (10:51→19:56)
[2017-03-10] MEDS: ALLOPURINOL 100 MG TABLET PO SCH (10:51)
[2017-03-10] MEDS: FERROUS SULFATE 325 MG EC TABLET PO SCH (10:51)
[2017-03-10] MEDS: ATORVASTATIN CALCIUM 40 MG TABLET PO SCH (10:51)
[2017-03-10] MEDS: CHOLECALCIFEROL (VIT D3) 1,000 UNITS TABLET PO SCH (10:51)
[2017-03-10] MEDS: VITAMIN B COMP/VIT C/FOLIC ACID CAPSULE PO SCH (10:51)
[2017-03-10] MEDS: DOCUSATE SODIUM 100 MG CAPSULE PO SCH ×2 (10:52→19:58)
[2017-03-10] MEDS: PANTOPRAZOLE SODIUM 40 MG/VIAL IVP SCH (10:52)
[2017-03-10] MEDS: SERTRALINE HCL 50 MG TABLET PO SCH (10:52)
[2017-03-10] MEDS: FLUTICASONE PROPIONATE 50 MCG/SPRAY 16 GM NASAL SPRAY NASAL SCH (10:53)
[2017-03-10 11:12] LABS: BASOPHILS # (AUTO) 0.02 K/uL (0.00-0.20); BASOPHILS % (AUTO) 0.2 % (0.0-2.0); EOSINOPHILS # (AUTO) 0.21 K/uL (0.00-0.70); EOSINOPHILS % (AUTO) 1.87 % (1.0-6.0); HEMATOCRIT 26.9 % (36-46); HEMOGLOBIN 8.9 g/dL (12.0-16.0); LYMPHOCYTES # (AUTO) 1.3 K/uL (1.0-4.8); LYMPHOCYTES % (AUTO) 12.1 % (22.0-44.0); MEAN CORPUSCULAR HEMOGLOBIN 30.5 pg (26.0-34.0); MEAN CORPUSCULAR HGB CONC 33.2 G/dL (31.0-37.0); MEAN CORPUSCULAR VOLUME 92 fL (80-100); MONOCYTES # (AUTO) 0.8 K/uL (0.1-1.0); MONOCYTES % (AUTO) 6.8 % (2.0-9.0); NEUTROPHILS # (AUTO) 8.7 K/uL (1.8-7.7); NEUTROPHILS % (AUTO) 79.1 % (40.0-70.0); PLATELET COUNT (AUTO) 279 K/uL (150-450); RED BLOOD CELL COUNT(AUTO) 2.94 MIL/uL (4.00-5.20); RED CELL DISTRIBUTION WIDTH 15.8 % (11.5-14.5)
[2017-03-10 11:19] VITALS: BP 140/68
[2017-03-10 11:42] LABS: GLUCOMETER DEV NAME(LOC) 6N 2D; GLUCOSE,POINT OF CARE 123 MG/DL (70-110)
[2017-03-10] MEDS: EPOETIN ALFA 10,000 UNITS/ML 2 ML VIAL SQ SCH (13:54)
[2017-03-10] MEDS ORDERED: LIDOCAINE HCL/PF 1% 2 ML VIAL INJ ONE (16:51)
[2017-03-10 17:32] LABS: GLUCOMETER DEV NAME(LOC) 6N 2D; GLUCOSE,POINT OF CARE 135 MG/DL (70-110)
[2017-03-10 19:50] VITALS: BP 146/97
[2017-03-10 20:02] LABS: GLUCOMETER DEV NAME(LOC) 6N 1E; GLUCOSE,POINT OF CARE 122 MG/DL (70-110)
[2017-03-11 00:14] VITALS: BP 123/59
[2017-03-11 04:59] VITALS: BP 139/71
[2017-03-11] MEDS ORDERED: CefTRIAXone SODIUM 1 GM in DEXTROSE 5%-WATER 10 ML IV ONE (05:00)
[2017-03-11] MEDS ORDERED: CefTRIAXone SODIUM 1 GM in DEXTROSE 5%-WATER 10 ML IV SCH (05:00)
[2017-03-11 06:02] LABS: GLUCOMETER DEV NAME(LOC) 6N 2D; GLUCOSE,POINT OF CARE 137 MG/DL (70-110)
[2017-03-11 08:24] VITALS: BP 135/67
[2017-03-11] MEDS ORDERED: DOXERCALCIFEROL 4 MCG/2 ML AMP IVP PRN (09:00)
[2017-03-11] MEDS: -PHARMACY NOTE- MISC SCH (09:00)
[2017-03-11] MEDS: DOCUSATE SODIUM 100 MG CAPSULE PO SCH ×2 (09:35→21:00)
[2017-03-11] MEDS: ALLOPURINOL 100 MG TABLET PO SCH (09:35)
[2017-03-11] MEDS: CHOLECALCIFEROL (VIT D3) 1,000 UNITS TABLET PO SCH (09:35)
[2017-03-11] MEDS: SERTRALINE HCL 50 MG TABLET PO SCH (09:35)
[2017-03-11] MEDS: AMOXICILLIN TRIHYDRATE 500 MG CAPSULE PO SCH (09:35)
[2017-03-11] MEDS: FLUTICASONE PROPIONATE 50 MCG/SPRAY 16 GM NASAL SPRAY NASAL SCH (09:35)
[2017-03-11] MEDS: VITAMIN B COMP/VIT C/FOLIC ACID CAPSULE PO SCH (09:36)
[2017-03-11] MEDS: PANTOPRAZOLE SODIUM 40 MG/VIAL IVP SCH (09:36)
[2017-03-11] MEDS: ATORVASTATIN CALCIUM 40 MG TABLET PO SCH (09:36)
[2017-03-11] MEDS: FERROUS SULFATE 325 MG EC TABLET PO SCH (09:36)
[2017-03-11] MEDS: BRIMONIDINE/TIMOLOL 0.2-0.5% 5 ML OPHTHALMIC SOLUTION OU SCH ×2 (09:37→22:07)
[2017-03-11 11:23] VITALS: BP 131/74
[2017-03-11] MEDS: INSULIN ASPART 100 UNITS/ML SQ PRN ×2 (11:50→22:09)
[2017-03-11 12:07] LABS: GLUCOMETER DEV NAME(LOC) 6N 1E; GLUCOSE,POINT OF CARE 156 MG/DL (70-110)
[2017-03-11 16:03] VITALS: BP 145/89
[2017-03-11 19:57] LABS: GLUCOMETER DEV NAME(LOC) 6N 1E; GLUCOSE,POINT OF CARE 138 MG/DL (70-110)
[2017-03-11 20:47] VITALS: BP 147/87
[2017-03-12 00:20] VITALS: BP 142/78
[2017-03-12 05:42] VITALS: BP 147/85
[2017-03-12 06:09] LABS: GLUCOMETER DEV NAME(LOC) 6N 1E; GLUCOSE,POINT OF CARE 99 MG/DL (70-110)
[2017-03-12 06:43] LABS: CALCIUM, TOTAL 9.4 mg/dL (8.8-10.5); CREATININE 5.31 mg/dL (0.60-1.30); POTASSIUM 4.4 mmol/L (3.5-5.1)
[2017-03-12 07:04] LABS: BASOPHILS # (AUTO) 0.05 K/uL (0.00-0.20); BASOPHILS % (AUTO) 0.4 % (0.0-2.0); EOSINOPHILS # (AUTO) 0.27 K/uL (0.00-0.70); EOSINOPHILS % (AUTO) 2.47 % (1.0-6.0); HEMATOCRIT 26.5 % (36-46); HEMOGLOBIN 8.7 g/dL (12.0-16.0); LYMPHOCYTES # (AUTO) 1.4 K/uL (1.0-4.8); MEAN CORPUSCULAR HEMOGLOBIN 30.6 pg (26.0-34.0); MEAN CORPUSCULAR HGB CONC 32.9 G/dL (31.0-37.0); MEAN CORPUSCULAR VOLUME 93 fL (80-100); MONOCYTES # (AUTO) 0.6 K/uL (0.1-1.0); MONOCYTES % (AUTO) 5.7 % (2.0-9.0); NEUTROPHILS # (AUTO) 8.5 K/uL (1.8-7.7); NEUTROPHILS % (AUTO) 78.5 % (40.0-70.0); PLATELET COUNT (AUTO) 209 K/uL (150-450); RED BLOOD CELL COUNT(AUTO) 2.85 MIL/uL (4.00-5.20); RED CELL DISTRIBUTION WIDTH 17.4 % (11.5-14.5)
[2017-03-12 07:10] VITALS: BP 152/70
[2017-03-12] MEDS: ALLOPURINOL 100 MG TABLET PO SCH (08:34)
[2017-03-12] MEDS: PANTOPRAZOLE SODIUM 40 MG/VIAL IVP SCH (08:34)
[2017-03-12] MEDS: VITAMIN B COMP/VIT C/FOLIC ACID CAPSULE PO SCH (08:34)
[2017-03-12] MEDS: BRIMONIDINE/TIMOLOL 0.2-0.5% 5 ML OPHTHALMIC SOLUTION OU SCH ×2 (08:34→20:38)
[2017-03-12] MEDS: FLUTICASONE PROPIONATE 50 MCG/SPRAY 16 GM NASAL SPRAY NASAL SCH (08:35)
[2017-03-12] MEDS: SERTRALINE HCL 50 MG TABLET PO SCH (08:35)
[2017-03-12] MEDS: AMOXICILLIN TRIHYDRATE 500 MG CAPSULE PO SCH (08:35)
[2017-03-12] MEDS: DOCUSATE SODIUM 100 MG CAPSULE PO SCH ×2 (08:35→20:39)
[2017-03-12] MEDS: ATORVASTATIN CALCIUM 40 MG TABLET PO SCH (08:35)
[2017-03-12] MEDS: FERROUS SULFATE 325 MG EC TABLET PO SCH (08:35)
[2017-03-12] MEDS: CHOLECALCIFEROL (VIT D3) 1,000 UNITS TABLET PO SCH (08:35)
[2017-03-12] MEDS: EPOETIN ALFA 10,000 UNITS/ML 2 ML VIAL SQ SCH (08:42)
[2017-03-12] MEDS: -PHARMACY NOTE- MISC SCH (09:00)
[2017-03-12 11:37] VITALS: BP 143/64
[2017-03-12] MEDS: INSULIN ASPART 100 UNITS/ML SQ PRN ×2 (12:02→22:04)
[2017-03-12 12:13] LABS: GLUCOMETER DEV NAME(LOC) 6N 2D; GLUCOSE,POINT OF CARE 151 MG/DL (70-110)
[2017-03-12 17:17] LABS: GLUCOMETER DEV NAME(LOC) 6N 2D; GLUCOSE,POINT OF CARE 114 MG/DL (70-110)
[2017-03-12] MEDS ORDERED: HEPARIN SODIUM,PORCINE 1,000 UNITS/ML VIAL IVP ONE (17:48)
[2017-03-12] MEDS ORDERED: LIDOCAINE HCL/PF 1% 2 ML VIAL IM ONE (17:48)
[2017-03-12 19:47] VITALS: BP 143/86
[2017-03-12 23:22] VITALS: BP 124/65
[2017-03-13 04:45] VITALS: BP 136/74
[2017-03-13 04:53] LABS: GLUCOMETER DEV NAME(LOC) 6N 2D; GLUCOSE,POINT OF CARE 246 MG/DL (70-110)
[2017-03-13 08:33] VITALS: BP 133/71
[2017-03-13 08:42] LABS: GLUCOMETER DEV NAME(LOC) 6N 1E; GLUCOSE,POINT OF CARE 104 MG/DL (70-110)
[2017-03-13] MEDS: FLUTICASONE PROPIONATE 50 MCG/SPRAY 16 GM NASAL SPRAY NASAL SCH (08:43)
[2017-03-13] MEDS: BRIMONIDINE/TIMOLOL 0.2-0.5% 5 ML OPHTHALMIC SOLUTION OU SCH (08:43)
[2017-03-13] MEDS: AMOXICILLIN TRIHYDRATE 500 MG CAPSULE PO SCH (08:43)
[2017-03-13] MEDS: CHOLECALCIFEROL (VIT D3) 1,000 UNITS TABLET PO SCH (08:43)
[2017-03-13] MEDS: ALLOPURINOL 100 MG TABLET PO SCH (08:43)
[2017-03-13] MEDS: DOCUSATE SODIUM 100 MG CAPSULE PO SCH (08:44)
[2017-03-13] MEDS: VITAMIN B COMP/VIT C/FOLIC ACID CAPSULE PO SCH (08:44)
[2017-03-13] MEDS: SERTRALINE HCL 50 MG TABLET PO SCH (08:44)
[2017-03-13] MEDS: FERROUS SULFATE 325 MG EC TABLET PO SCH (08:44)
[2017-03-13] MEDS: PANTOPRAZOLE SODIUM 40 MG/VIAL IVP SCH (08:44)
[2017-03-13] MEDS: ATORVASTATIN CALCIUM 40 MG TABLET PO SCH (08:44)
[2017-03-13] MEDS: -PHARMACY NOTE- MISC SCH (08:51)
[2017-03-13 11:20] VITALS: BP 127/80
[2017-03-13] MEDS: INSULIN ASPART 100 UNITS/ML SQ PRN (12:09)
[2017-03-13 13:08] LABS: GLUCOMETER DEV NAME(LOC) 6N 2D; GLUCOSE,POINT OF CARE 151 MG/DL (70-110)
[2017-03-13 15:15] VITALS: BP 147/86
[2017-03-13] MEDS ORDERED: SEVEC800 PO (17:45)
[2017-03-13] MEDS ORDERED: OMEG-50 PO (17:45)
[2017-03-13] MEDS ORDERED: ATOR40TA28 PO ×2 (17:48→18:43)
[2017-03-13] MEDS ORDERED: GEMF600T3 PO (17:49)
[2017-03-13] MEDS ORDERED: ATEN25TA PO (17:52)
[2017-03-13] MEDS ORDERED: SERT50TA12 PO (17:54)
[2017-03-13] MEDS ORDERED: PANT40TA25 PO (17:55)
[2017-03-14 00:13] LABS: GLUCOMETER DEV NAME(LOC) 6N 2D; GLUCOSE,POINT OF CARE 139 MG/DL (70-110)
== END 2017-03-13 18:15 | disposition home or self-care (01) | DRG 720 ==
LOC: EMS 17:42 → 6N 21:25
PROVIDERS: ADMIT Internal Medicine; ATTEND Internal Medicine
PROC: 0W9G30Z Drainage of Peritoneal Cavity with Drainage Device, Percutaneous Approach (ICD-10-PCS; principal; 2017-03-03)
DX: A41.9 Sepsis, unspecified organism (principal); E43 Unspecified severe protein-calorie malnutrition; K65.1 Peritoneal abscess; N18.6 End stage renal disease; I95.9 Hypotension, unspecified; I12.0 Hypertensive chronic kidney disease with stage 5 chronic kidney disease or end stage renal disease; E87.1 Hypo-osmolality and hyponatremia; D64.9 Anemia, unspecified; E11.22 Type 2 diabetes mellitus with diabetic chronic kidney disease; E78.5 Hyperlipidemia, unspecified; E11.65 Type 2 diabetes mellitus with hyperglycemia; E87.6 Hypokalemia; F70 Mild intellectual disabilities; I25.10 Atherosclerotic heart disease of native coronary artery without angina pectoris; I70.0 Atherosclerosis of aorta; Z99.2 Dependence on renal dialysis; Z88.2 Allergy status to sulfonamides; Z88.8 Allergy status to other drugs, medicaments and biological substances; Z68.23 Body mass index [BMI] 23.0-23.9, adult; Z83.3 Family history of diabetes mellitus; Z82.49 Family history of ischemic heart disease and other diseases of the circulatory system
CPT/HCPCS: 74176; 74177; 77012; 82962; 83540; 83550; 83605; 86850; 86880; 86900; 86901; 86920; 86927; 87040; 87070; 87081; 87205; 87340; 90935; 93005; 96361; 96365; 96366; 96375; 97162; 97165; 97530; 99291; C9113; J0696; J0885; J1644; J2150; J2250; J2405; J2543; J3010; J3370; J3430; J3480; J3490; J7030; J7040; J7050; J7060; P9016; P9017; P9047

== ENCOUNTER 2017-04-08 10:02 | Emergency (ER) | payer OTHER ==
[~2017-04-08] VITALS: Ht 154.9 cm; Wt 59.0 kg
[~2017-04-08 10:02] MED LIST changes: +ATEN25TA PO; +GEMF600T3 PO; +OMEG-50 PO; +PANT40TA25 PO; +SERT50TA12 PO; +SEVEC800 PO
[2017-04-08 10:04] VITALS: BP 133/82
== END 2017-04-08 10:57 | disposition home or self-care (01) ==
LOC: EMS 10:03
DX: Z48.00 Encounter for change or removal of nonsurgical wound dressing (principal); I12.0 Hypertensive chronic kidney disease with stage 5 chronic kidney disease or end stage renal disease; E11.22 Type 2 diabetes mellitus with diabetic chronic kidney disease; N18.6 End stage renal disease; Z88.1 Allergy status to other antibiotic agents
CPT/HCPCS: 99282

== ENCOUNTER → 2017-04-13 | Outpatient (CLI) | payer OTHER ==
[~2017-04-13] MED LIST changes: +IOVERSOL 350 MG/ML 100 ML VIAL ONE
== END | disposition home or self-care (01) ==
LOC: RADMN 08:20
PROVIDERS: ATTEND Surgery
DX: K65.1 Peritoneal abscess (principal); J98.11 Atelectasis; J90 Pleural effusion, not elsewhere classified; K43.9 Ventral hernia without obstruction or gangrene; R16.0 Hepatomegaly, not elsewhere classified
CPT/HCPCS: 74177; Q9967

== ENCOUNTER → 2017-05-25 | Outpatient (CLI) | payer OTHER ==
[~2017-05-25] MED LIST changes: +IOHEXOL 180 MG/ML 20 ML VIAL ONE; -IOVERSOL 350 MG/ML 100 ML VIAL ONE
== END | disposition home or self-care (01) ==
LOC: RADMN 08:50
PROVIDERS: ATTEND Surgery
DX: K65.1 Peritoneal abscess (principal)
CPT/HCPCS: 76000; 99242; Q9965

== ENCOUNTER → 2017-07-08 | Outpatient (CLI) | payer OTHER ==
[~2017-07-08] MED LIST changes: +IOHEXOL 240 MG/ML 20 ML VIAL ONE; +LIDOCAINE HCL/PF 1% 30 ML VIAL ONE
== END | disposition home or self-care (01) ==
LOC: RADMN 08:20
PROVIDERS: ATTEND Surgery
DX: K65.1 Peritoneal abscess (principal)
CPT/HCPCS: 76001; J3490; Q9965; Q9966

== ENCOUNTER 2017-11-09 18:52 | Emergency (ER) | payer OTHER ==
[~2017-11-09] VITALS: Ht 154.9 cm; Wt 61.4 kg
[~2017-11-09 18:52] MED LIST changes: -GEMF600T3 PO; +GEMF600T5 PO; -IOHEXOL 180 MG/ML 20 ML VIAL ONE; -IOHEXOL 240 MG/ML 20 ML VIAL ONE; -LIDOCAINE HCL/PF 1% 30 ML VIAL ONE
[2017-11-09 21:01] VITALS: BP 155/84
== END 2017-11-09 21:07 | disposition home or self-care (01) ==
LOC: EMS 18:53
DX: Z48.01 Encounter for change or removal of surgical wound dressing (principal); E11.22 Type 2 diabetes mellitus with diabetic chronic kidney disease; I13.11 Hypertensive heart and chronic kidney disease without heart failure, with stage 5 chronic kidney disease, or end stage renal disease; E78.00 Pure hypercholesterolemia, unspecified; N18.6 End stage renal disease; Z88.1 Allergy status to other antibiotic agents; Z79.899 Other long term (current) drug therapy; Z99.2 Dependence on renal dialysis
CPT/HCPCS: 99283

== ENCOUNTER 2018-09-18 17:56 | Emergency (ER) | payer MEDICARE, OTHER ==
[~2018-09-18] VITALS: Ht 154.9 cm; Wt 64.1 kg
[2018-09-18] MEDS ORDERED: ATOR40TA28 PO (18:22)
[2018-09-18 18:30] LABS: GLUCOSE,POINT OF CARE 176 MG/DL (70-110)
[2018-09-18] MEDS ORDERED: MIDAZOLAM HCL 2 MG/2 ML VIAL IVP ONE (19:30)
[2018-09-18] MEDS ORDERED: ONDANSETRON HCL 4 MG TABLET PO ONE (19:30)
[2018-09-18 19:44] LABS: BASOPHILS % (AUTO) 0.3 % (0.0-2.0); EOSINOPHILS % (AUTO) 0.3 % (1.0-6.0); HEMOGLOBIN 12.4 g/dL (12.0-16.0); LYMPHOCYTES # (AUTO) 0.6 K/uL (1.0-4.8); LYMPHOCYTES % (AUTO) 5.2 % (22.0-44.0); MEAN CORPUSCULAR HEMOGLOBIN 32.3 pg (26.0-34.0); MEAN CORPUSCULAR HGB CONC 31.9 G/dL (31.0-37.0); MEAN CORPUSCULAR VOLUME 101 fL (80-100); MONOCYTES # (AUTO) 0.2 K/uL (0.1-1.0); MONOCYTES % (AUTO) 1.8 % (2.0-9.0); NEUTROPHILS # (AUTO) 10.2 K/uL (1.8-7.7); PLATELET COUNT (AUTO) 436 K/uL (150-450); RED BLOOD CELL COUNT(AUTO) 3.85 MIL/uL (4.00-5.20); RED CELL DISTRIBUTION WIDTH 16.1 % (11.5-14.5)
[2018-09-18 19:45] LABS: NEUTROPHILS % (AUTO) 92.4 % (40.0-70.0)
[2018-09-18 19:53] LABS: CALCIUM, TOTAL 10.8 mg/dL (8.8-10.5); CREATININE 7.78 mg/dL (0.60-1.30); POTASSIUM 5.7 mmol/L (3.5-5.1)
[2018-09-18 20:06] LABS: ALBUMIN 4.2 g/dL (3.4-5.0); BILIRUBIN,TOTAL 0.8 mg/dL (0.1-1.0); TOTAL PROTEIN, SERUM 8.6 g/dL (6.4-8.2)
[2018-09-18 23:31] VITALS: BP 149/75
== END 2018-09-18 23:35 | disposition home or self-care (01) ==
LOC: EMS 17:57
DX: K52.9 Noninfective gastroenteritis and colitis, unspecified (principal); N39.0 Urinary tract infection, site not specified; E11.22 Type 2 diabetes mellitus with diabetic chronic kidney disease; I12.0 Hypertensive chronic kidney disease with stage 5 chronic kidney disease or end stage renal disease; N18.6 End stage renal disease; E78.00 Pure hypercholesterolemia, unspecified; Z79.899 Other long term (current) drug therapy; Z88.1 Allergy status to other antibiotic agents; Z88.8 Allergy status to other drugs, medicaments and biological substances; Z99.2 Dependence on renal dialysis; Z98.890 Other specified postprocedural states
CPT/HCPCS: 36415; 80053; 81002; 82962; 83690; 85025; 93005; 99284; Q0162

== ENCOUNTER 2018-11-08 21:25 | Inpatient (IN) | payer MEDICARE, OTHER ==
[~2018-11-08] VITALS: Ht 154.9 cm; Wt 67.9 kg
[~2018-11-08 21:25] MED LIST changes: -COMB5OS OU; -FERR-89 PO; +SEVE800T17 PO; -SEVEC800 PO; -SODI650T PO; -VITAD1000 PO
[2018-11-08 22:37] LABS: HEMATOCRIT 43.3 % (36-46); HEMOGLOBIN 14.7 g/dL (12.0-16.0); MEAN CORPUSCULAR HGB CONC 33.8 G/dL (31.0-37.0); MEAN CORPUSCULAR VOLUME 98 fL (80-100); PLATELET COUNT (AUTO) 454 K/uL (150-450); RED BLOOD CELL COUNT(AUTO) 4.44 MIL/uL (4.00-5.20); RED CELL DISTRIBUTION WIDTH 15.4 % (11.5-14.5)
[2018-11-08 22:52] LABS: ANION GAP 19 mmol/L (8-16); CALCIUM, TOTAL 11.2 mg/dL (8.8-10.5); CARBON DIOXIDE 23 mmol/L (22-29); CHLORIDE 93 mmol/L (98-107); CREATININE 6.48 mg/dL (0.60-1.30); GLOMERULAR FILTR. RATE CALC 7 mL/min (>60); GLUCOSE,RANDOM 213 mg/dL (70-110); POTASSIUM 5.6 mmol/L (3.5-5.1); SODIUM SERUM 135 mmol/L (136-145); UREA NITROGEN, BLOOD 73 mg/dL (7-18)
[2018-11-08 23:03] LABS: ALANINE AMINOTRANSFERASE 11 U/L (12-78); ALBUMIN 4.5 g/dL (3.4-5.0); ALKALINE PHOSPHATASE 208 U/L (46-116); ASPARTATE AMINOTRANSFERASE 24 U/L (15-37); BILIRUBIN,TOTAL 0.9 mg/dL (0.1-1.0); LIPASE 1006 U/L (73-393); TOTAL PROTEIN, SERUM 9.5 g/dL (6.4-8.2)
[2018-11-08 23:12] LABS: BAND NEUTROPHILS % (MANUAL) 10 % (0-5); LYMPHOCYTES % (MANUAL) 5 % (22-44); MONOCYTES % (MANUAL) 4 % (2-9); SEGMENTED NEUTROPHILS % 81 % (40-70)
[2018-11-09] MEDS ORDERED: ONDANSETRON HCL 4 MG/2 ML VIAL IVP ONE (01:15)
[2018-11-09] MEDS ORDERED: FAMOTIDINE 10 MG/ML 2 ML VIAL IVP ONE (01:15)
[2018-11-09] MEDS ORDERED: ACETAMINOPHEN 500 MG TABLET PO ONE (01:15)
[2018-11-09 01:33] LABS: HCG,QUANTITATIVE < 1 mIU/mL (0-6)
[2018-11-09] MEDS ORDERED: SODIUM CHLORIDE 0.9% 500 ML IV ONE (01:45)
[2018-11-09] MEDS ORDERED: IOVERSOL 350 MG/ML 100 ML VIAL ONE (01:51)
[2018-11-09] MEDS ORDERED: SODIUM CHLORIDE 0.9% 100 ML ONE (01:51)
[2018-11-09] MEDS ORDERED: ALBUTEROL SULFATE 5 MG/ML 20 ML NEB SOLN [BULK] NEB ONE (03:00)
[2018-11-09] MEDS ORDERED: DEXTROSE 50%-WATER 25 GM/50 ML SYRINGE IVP ONE (03:00)
[2018-11-09] MEDS ORDERED: SODIUM POLYSTYRENE SULFONATE 15 GM/60 ML SUSPENSION BOTTLE PO ONE (03:00)
[2018-11-09] MEDS ORDERED: CALCIUM GLUCONATE 1,000 MG in DEXTROSE 5%-WATER 50 ML IV ONE (03:00)
[2018-11-09] MEDS ORDERED: INSULIN REGULAR, HUMAN 100 UNITS/ML IVP ONE (03:00)
[2018-11-09] MEDS ORDERED: 0.9% SODIUM CHLORIDE 5 ML NEB SOLUTION NEB ONE (03:13)
[2018-11-09] MEDS ORDERED: ALBUTEROL SULFATE 2.5 MG/0.5 ML NEB SOLUTION NEB ONE (03:15)
[2018-11-09 05:19] VITALS: BP 146/71
[2018-11-09] MEDS ORDERED: 0.9% SODIUM CHLORIDE 10 ML SYRINGE IVP PRN (05:45)
[2018-11-09] MEDS ORDERED: INSULIN LISPRO 100 UNITS/ML SQ PRN (05:45)
[2018-11-09] MEDS ORDERED: *CLINICAL-LEVOFLOXACIN IVPB DOSING CLINICAL ONE (05:45)
[2018-11-09] MEDS ORDERED: GLUCAGON,HUMAN RECOMBINANT 1 MG VIAL IM PRN (05:45)
[2018-11-09] MEDS: SODIUM CHLORIDE 0.9% 1,000 ML IV SCH ×2 (06:09→23:31)
[2018-11-09] MEDS ORDERED: FAMOTIDINE 10 MG/ML 2 ML VIAL IVP SCH (09:00)
[2018-11-09 09:49] VITALS: BP 149/79
[2018-11-09 11:36] VITALS: BP 171/76
[2018-11-09] MEDS: ONDANSETRON HCL 4 MG/2 ML VIAL IVP PRN ×2 (11:40→20:52)
[2018-11-09] MEDS ORDERED: HydrALAZINE HCL 20 MG/ML VIAL IVP PRN (12:15)
[2018-11-09] MEDS ORDERED: IPRATROPIUM BROMIDE 0.5 MG/2.5 ML NEB SOLUTION NEB PRN (12:15)
[2018-11-09] MEDS ORDERED: ALBUTEROL SULFATE 2.5 MG/0.5 ML NEB SOLUTION NEB PRN (12:15)
[2018-11-09] MEDS ORDERED: MORPHINE SULFATE 2 MG/ML SYRINGE IVP PRN (12:30)
[2018-11-09 12:46] LABS: GLUCOMETER DEV NAME(LOC) 5N.2; GLUCOSE,POINT OF CARE 158 MG/DL (70-110)
[2018-11-09] MEDS: FLUTICASONE PROPIONATE 50 MCG/SPRAY 16 GM NASAL SPRAY NASAL SCH (13:42)
[2018-11-09] MEDS ORDERED: LEVOFLOXACIN 750 MG/D5% WATER 150 ML IV ONE (15:00)
[2018-11-09] MEDS: PIPERACILLIN SODIUM/TAZOBACTAM 2.25 GM in DEXTROSE 5%-WATER 50 ML IV SCH ×2 (16:04→20:29)
[2018-11-09 16:15] VITALS: BP 140/77
[2018-11-09 17:56] LABS: BASOPHILS % (AUTO) 0.9 % (0.0-2.0); EOSINOPHILS % (AUTO) 0.1 % (1.0-6.0); HEMATOCRIT 40.8 % (36-46); HEMOGLOBIN 13.5 g/dL (12.0-16.0); LYMPHOCYTES # (AUTO) 0.6 K/uL (1.0-4.8); LYMPHOCYTES % (AUTO) 10.3 % (22.0-44.0); MEAN CORPUSCULAR HEMOGLOBIN 32.4 pg (26.0-34.0); MEAN CORPUSCULAR VOLUME 98 fL (80-100); MONOCYTES # (AUTO) 0.6 K/uL (0.1-1.0); MONOCYTES % (AUTO) 9.5 % (2.0-9.0); NEUTROPHILS # (AUTO) 4.8 K/uL (1.8-7.7); NEUTROPHILS % (AUTO) 79.2 % (40.0-70.0); PLATELET COUNT (AUTO) 377 K/uL (150-450); RED BLOOD CELL COUNT(AUTO) 4.16 MIL/uL (4.00-5.20); RED CELL DISTRIBUTION WIDTH 15.3 % (11.5-14.5)
[2018-11-09 18:15] LABS: BILIRUBIN,TOTAL 1.3 mg/dL (0.1-1.0); CALCIUM, TOTAL 10.6 mg/dL (8.8-10.5); CREATININE 3.14 mg/dL (0.60-1.30); POTASSIUM 4.5 mmol/L (3.5-5.1); TOTAL PROTEIN, SERUM 8.6 g/dL (6.4-8.2)
[2018-11-09 19:30] VITALS: BP 154/75
[2018-11-09] MEDS: FAMOTIDINE 10 MG/ML 2 ML VIAL IVP SCH (20:29)
[2018-11-09 21:56] LABS: GLUCOMETER DEV NAME(LOC) 5N.2; GLUCOSE,POINT OF CARE 153 MG/DL (70-110)
[2018-11-10] VITALS: BP 144/78
[2018-11-10 05:04] VITALS: BP 139/73
[2018-11-10] MEDS: PIPERACILLIN SODIUM/TAZOBACTAM 2.25 GM in DEXTROSE 5%-WATER 50 ML IV SCH ×3 (05:06→20:31)
[2018-11-10 05:11] LABS: GLUCOMETER DEV NAME(LOC) 5N.1; GLUCOSE,POINT OF CARE 140 MG/DL (70-110)
[2018-11-10 05:11] LABS: GLUCOMETER DEV NAME(LOC) 5N.1; GLUCOSE,POINT OF CARE 148 MG/DL (70-110)
[2018-11-10] MEDS: ONDANSETRON HCL 4 MG/2 ML VIAL IVP PRN (05:13)
[2018-11-10] MEDS ORDERED: DEXTROSE 50%-WATER 25 GM/50 ML SYG IVP PRN (06:00)
[2018-11-10 06:37] LABS: BASOPHILS % (AUTO) 0.3 % (0.0-2.0); EOSINOPHILS % (AUTO) 0.5 % (1.0-6.0); HEMATOCRIT 40.8 % (36-46); HEMOGLOBIN 13.6 g/dL (12.0-16.0); LYMPHOCYTES # (AUTO) 0.3 K/uL (1.0-4.8); LYMPHOCYTES % (AUTO) 3.9 % (22.0-44.0); MEAN CORPUSCULAR HEMOGLOBIN 32.9 pg (26.0-34.0); MEAN CORPUSCULAR HGB CONC 33.2 G/dL (31.0-37.0); MEAN CORPUSCULAR VOLUME 99 fL (80-100); MONOCYTES # (AUTO) 0.5 K/uL (0.1-1.0); MONOCYTES % (AUTO) 6.5 % (2.0-9.0); NEUTROPHILS # (AUTO) 6.8 K/uL (1.8-7.7); PLATELET COUNT (AUTO) 352 K/uL (150-450); RED BLOOD CELL COUNT(AUTO) 4.12 MIL/uL (4.00-5.20); RED CELL DISTRIBUTION WIDTH 15.4 % (11.5-14.5)
[2018-11-10 06:53] LABS: NEUTROPHILS % (AUTO) 88.8 % (40.0-70.0)
[2018-11-10 07:07] LABS: ALBUMIN 3.7 g/dL (3.4-5.0); CALCIUM, TOTAL 9.9 mg/dL (8.8-10.5); CHOL/HDL RATIO 4.3 (3.9-5.7); CREATININE 4.21 mg/dL (0.60-1.30); FREE T4 (FREE THYROXINE) 0.73 ng/dL (0.76-1.46); POTASSIUM 5.3 mmol/L (3.5-5.1); THYROID STIMULATING HORMONE 3.34 uIU/mL (0.36-3.74); TOTAL PROTEIN, SERUM 7.9 g/dL (6.4-8.2)
[2018-11-10 07:52] VITALS: BP 151/78
[2018-11-10] MEDS: FAMOTIDINE 10 MG/ML 2 ML VIAL IVP SCH ×3 (08:28→21:00)
[2018-11-10] MEDS: FLUTICASONE PROPIONATE 50 MCG/SPRAY 16 GM NASAL SPRAY NASAL SCH (08:29)
[2018-11-10 11:43] VITALS: BP 144/75
[2018-11-10 12:12] LABS: GLUCOMETER DEV NAME(LOC) 5S.1; GLUCOSE,POINT OF CARE 142 MG/DL (70-110)
[2018-11-10] MEDS: SODIUM CHLORIDE 0.9% 1,000 ML IV SCH (13:36)
[2018-11-10] MEDS: DEXTROSE 5%-0.9% SODIUM CHL 1,000 ML IV SCH (15:05)
[2018-11-10] MEDS ORDERED: SODIUM CHLORIDE 0.9% 1,000 ML IV ONE (16:31)
[2018-11-10 17:36] LABS: GLUCOMETER DEV NAME(LOC) 5S.1; GLUCOSE,POINT OF CARE 136 MG/DL (70-110)
[2018-11-10 19:37] VITALS: BP 103/79
[2018-11-10 23:17] VITALS: BP 95/58
[2018-11-11] MEDS: PIPERACILLIN SODIUM/TAZOBACTAM 2.25 GM in DEXTROSE 5%-WATER 50 ML IV SCH ×3 (04:28→20:44)
[2018-11-11 04:37] VITALS: BP 100/61
[2018-11-11 07:24] LABS: BASOPHILS % (AUTO) 0.7 % (0.0-2.0); EOSINOPHILS % (AUTO) 14.6 % (1.0-6.0); HEMATOCRIT 37.4 % (36-46); HEMOGLOBIN 12.6 g/dL (12.0-16.0); LYMPHOCYTES # (AUTO) 0.4 K/uL (1.0-4.8); LYMPHOCYTES % (AUTO) 9.1 % (22.0-44.0); MEAN CORPUSCULAR HEMOGLOBIN 33.2 pg (26.0-34.0); MEAN CORPUSCULAR HGB CONC 33.7 G/dL (31.0-37.0); MEAN CORPUSCULAR VOLUME 99 fL (80-100); MONOCYTES # (AUTO) 0.6 K/uL (0.1-1.0); NEUTROPHILS % (AUTO) 63.6 % (40.0-70.0); PLATELET COUNT (AUTO) 275 K/uL (150-450); RED BLOOD CELL COUNT(AUTO) 3.79 MIL/uL (4.00-5.20); RED CELL DISTRIBUTION WIDTH 15.7 % (11.5-14.5)
[2018-11-11 07:42] VITALS: BP 103/59
[2018-11-11 07:50] LABS: ALBUMIN 3.5 g/dL (3.4-5.0); BILIRUBIN,TOTAL 0.7 mg/dL (0.1-1.0); CALCIUM, TOTAL 9.7 mg/dL (8.8-10.5); CREATININE 3.94 mg/dL (0.60-1.30); POTASSIUM 3.6 mmol/L (3.5-5.1); TOTAL PROTEIN, SERUM 7.6 g/dL (6.4-8.2)
[2018-11-11] MEDS: FLUTICASONE PROPIONATE 50 MCG/SPRAY 16 GM NASAL SPRAY NASAL SCH (08:45)
[2018-11-11] MEDS: FAMOTIDINE 10 MG/ML 2 ML VIAL IVP SCH ×2 (08:46→20:44)
[2018-11-11 11:10] LABS: GLUCOMETER DEV NAME(LOC) 5N.1; GLUCOSE,POINT OF CARE 95 MG/DL (70-110)
[2018-11-11 11:10] LABS: GLUCOMETER DEV NAME(LOC) 5N.1; GLUCOSE,POINT OF CARE 111 MG/DL (70-110)
[2018-11-11 11:10] LABS: GLUCOMETER DEV NAME(LOC) 5N.1; GLUCOSE,POINT OF CARE 126 MG/DL (70-110)
[2018-11-11 11:12] VITALS: BP 104/52
[2018-11-11] MEDS: DEXTROSE 5%-0.9% SODIUM CHL 1,000 ML IV SCH (12:51)
[2018-11-11] MEDS ORDERED: LEVOFLOXACIN 500 MG/D5% WATER 100 ML IV SCH (15:00)
[2018-11-11 16:07] VITALS: BP 101/55
[2018-11-11] MEDS: INSULIN LISPRO 100 UNITS/ML SQ PRN (18:03)
[2018-11-11 20:25] VITALS: BP 99/54
[2018-11-11 20:35] LABS: GLUCOMETER DEV NAME(LOC) 5N.1; GLUCOSE,POINT OF CARE 161 MG/DL (70-110)
[2018-11-11 20:35] LABS: GLUCOMETER DEV NAME(LOC) 5N.1; GLUCOSE,POINT OF CARE 104 MG/DL (70-110)
[2018-11-12] VITALS (7 sets, daily range): BP systolic 104–130; BP diastolic 56–76
[2018-11-12] MEDS: PIPERACILLIN SODIUM/TAZOBACTAM 2.25 GM in DEXTROSE 5%-WATER 50 ML IV SCH ×3 (04:02→20:44)
[2018-11-12] MEDS: DEXTROSE 5%-0.9% SODIUM CHL 1,000 ML IV SCH ×2 (05:17→20:44)
[2018-11-12 06:43] LABS: BASOPHILS % (AUTO) 0.3 % (0.0-2.0); HEMATOCRIT 34.9 % (36-46); HEMOGLOBIN 11.8 g/dL (12.0-16.0); LYMPHOCYTES # (AUTO) 0.4 K/uL (1.0-4.8); LYMPHOCYTES % (AUTO) 5.9 % (22.0-44.0); MEAN CORPUSCULAR VOLUME 97 fL (80-100); MONOCYTES # (AUTO) 0.6 K/uL (0.1-1.0); NEUTROPHILS # (AUTO) 4.1 K/uL (1.8-7.7); NEUTROPHILS % (AUTO) 68.3 % (40.0-70.0); PLATELET COUNT (AUTO) 250 K/uL (150-450); RED BLOOD CELL COUNT(AUTO) 3.59 MIL/uL (4.00-5.20); RED CELL DISTRIBUTION WIDTH 15.4 % (11.5-14.5)
[2018-11-12 06:45] LABS: EOSINOPHILS % (AUTO) 15.5 % (1.0-6.0)
[2018-11-12] MEDS ORDERED: SODIUM CHLORIDE 0.9% 2,000 ML IV ONE (06:49)
[2018-11-12 07:09] LABS: ALBUMIN 3.2 g/dL (3.4-5.0); BILIRUBIN,TOTAL 0.5 mg/dL (0.1-1.0); CALCIUM, TOTAL 9.4 mg/dL (8.8-10.5); CREATININE 5.53 mg/dL (0.60-1.30); POTASSIUM 3.7 mmol/L (3.5-5.1)
[2018-11-12] MEDS: FLUTICASONE PROPIONATE 50 MCG/SPRAY 16 GM NASAL SPRAY NASAL SCH (08:30)
[2018-11-12] MEDS: FAMOTIDINE 10 MG/ML 2 ML VIAL IVP SCH ×2 (09:00→20:44)
[2018-11-12 18:12] LABS: GLUCOMETER DEV NAME(LOC) 5N.1; GLUCOSE,POINT OF CARE 114 MG/DL (70-110)
[2018-11-12 18:12] LABS: GLUCOMETER DEV NAME(LOC) 5N.1; GLUCOSE,POINT OF CARE 80 MG/DL (70-110)
[2018-11-12 20:11] LABS: GLUCOMETER DEV NAME(LOC) 5S.2A; GLUCOSE,POINT OF CARE 108 MG/DL (70-110)
[2018-11-12 20:11] LABS: GLUCOMETER DEV NAME(LOC) 5S.2A; GLUCOSE,POINT OF CARE 133 MG/DL (70-110)
[2018-11-12 22:41] LABS: GLUCOMETER DEV NAME(LOC) 5N.2; GLUCOSE,POINT OF CARE 135 MG/DL (70-110)
[2018-11-13 05:05] VITALS: BP 114/71
[2018-11-13] MEDS: PIPERACILLIN SODIUM/TAZOBACTAM 2.25 GM in DEXTROSE 5%-WATER 50 ML IV SCH ×3 (05:45→20:09)
[2018-11-13 06:16] LABS: BASOPHILS % (AUTO) 0.1 % (0.0-2.0); EOSINOPHILS % (AUTO) 15.1 % (1.0-6.0); HEMATOCRIT 35.1 % (36-46); LYMPHOCYTES # (AUTO) 0.5 K/uL (1.0-4.8); LYMPHOCYTES % (AUTO) 7.4 % (22.0-44.0); MEAN CORPUSCULAR HEMOGLOBIN 33.1 pg (26.0-34.0); MEAN CORPUSCULAR HGB CONC 34.2 G/dL (31.0-37.0); MEAN CORPUSCULAR VOLUME 97 fL (80-100); MONOCYTES # (AUTO) 0.7 K/uL (0.1-1.0); MONOCYTES % (AUTO) 11.2 % (2.0-9.0); NEUTROPHILS # (AUTO) 4.1 K/uL (1.8-7.7); NEUTROPHILS % (AUTO) 66.2 % (40.0-70.0); PLATELET COUNT (AUTO) 240 K/uL (150-450); RED BLOOD CELL COUNT(AUTO) 3.63 MIL/uL (4.00-5.20); RED CELL DISTRIBUTION WIDTH 15.1 % (11.5-14.5)
[2018-11-13 06:35] LABS: ALBUMIN 3.1 g/dL (3.4-5.0); BILIRUBIN,TOTAL 0.4 mg/dL (0.1-1.0); CALCIUM, TOTAL 9.1 mg/dL (8.8-10.5); CREATININE 3.91 mg/dL (0.60-1.30); POTASSIUM 3.6 mmol/L (3.5-5.1); TOTAL PROTEIN, SERUM 6.8 g/dL (6.4-8.2)
[2018-11-13 06:51] LABS: GLUCOMETER DEV NAME(LOC) 5N.1; GLUCOSE,POINT OF CARE 109 MG/DL (70-110)
[2018-11-13 08:13] VITALS: BP 115/61
[2018-11-13] MEDS: FLUTICASONE PROPIONATE 50 MCG/SPRAY 16 GM NASAL SPRAY NASAL SCH (09:20)
[2018-11-13] MEDS: FAMOTIDINE 10 MG/ML 2 ML VIAL IVP SCH ×2 (09:21→20:09)
[2018-11-13 11:30] VITALS: BP 138/77
[2018-11-13 16:09] VITALS: BP 128/64
[2018-11-13 20:10] VITALS: BP 118/59
[2018-11-14] VITALS (7 sets, daily range): BP systolic 127–148; BP diastolic 66–79
[2018-11-14 05:42] LABS: GLUCOMETER DEV NAME(LOC) 5N.2; GLUCOSE,POINT OF CARE 122 MG/DL (70-110)
[2018-11-14 05:42] LABS: GLUCOMETER DEV NAME(LOC) 5N.2; GLUCOSE,POINT OF CARE 94 MG/DL (70-110)
[2018-11-14 05:42] LABS: GLUCOMETER DEV NAME(LOC) 5S.2A; GLUCOSE,POINT OF CARE 98 MG/DL (70-110)
[2018-11-14] MEDS: PIPERACILLIN SODIUM/TAZOBACTAM 2.25 GM in DEXTROSE 5%-WATER 50 ML IV SCH ×3 (05:42→21:07)
[2018-11-14] MEDS ORDERED: SODIUM CHLORIDE 0.9% 2,000 ML IV ONE (06:16)
[2018-11-14 06:32] LABS: BASOPHILS % (AUTO) 0.4 % (0.0-2.0); HEMATOCRIT 35.2 % (36-46); HEMOGLOBIN 12.1 g/dL (12.0-16.0); LYMPHOCYTES # (AUTO) 0.4 K/uL (1.0-4.8); LYMPHOCYTES % (AUTO) 5.9 % (22.0-44.0); MEAN CORPUSCULAR HEMOGLOBIN 32.8 pg (26.0-34.0); MEAN CORPUSCULAR HGB CONC 34.4 G/dL (31.0-37.0); MEAN CORPUSCULAR VOLUME 95 fL (80-100); MONOCYTES # (AUTO) 0.6 K/uL (0.1-1.0); MONOCYTES % (AUTO) 7.6 % (2.0-9.0); NEUTROPHILS # (AUTO) 5.3 K/uL (1.8-7.7); NEUTROPHILS % (AUTO) 72.1 % (40.0-70.0); PLATELET COUNT (AUTO) 258 K/uL (150-450)
[2018-11-14 06:43] LABS: ALBUMIN 3.2 g/dL (3.4-5.0); BILIRUBIN,TOTAL 0.5 mg/dL (0.1-1.0); CALCIUM, TOTAL 9.1 mg/dL (8.8-10.5); CREATININE 5.36 mg/dL (0.60-1.30); TOTAL PROTEIN, SERUM 6.8 g/dL (6.4-8.2)
[2018-11-14 07:51] LABS: GLUCOMETER DEV NAME(LOC) 5S.2A; GLUCOSE,POINT OF CARE 102 MG/DL (70-110)
[2018-11-14] MEDS: FAMOTIDINE 10 MG/ML 2 ML VIAL IVP SCH ×3 (08:04→21:07)
[2018-11-14] MEDS: FLUTICASONE PROPIONATE 50 MCG/SPRAY 16 GM NASAL SPRAY NASAL SCH ×2 (08:04→18:04)
[2018-11-14] MEDS ORDERED: SODIUM CHLORIDE 0.9% 1,000 ML IV ONE (12:08)
[2018-11-14] MEDS: INSULIN LISPRO 100 UNITS/ML SQ PRN (21:09)
[2018-11-14 22:31] LABS: GLUCOMETER DEV NAME(LOC) 5N.2; GLUCOSE,POINT OF CARE 180 MG/DL (70-110)
[2018-11-15 05:11] VITALS: BP 135/77
[2018-11-15] MEDS: PIPERACILLIN SODIUM/TAZOBACTAM 2.25 GM in DEXTROSE 5%-WATER 50 ML IV SCH ×3 (06:00→21:04)
[2018-11-15 06:50] LABS: BASOPHILS % (AUTO) 0.1 % (0.0-2.0); EOSINOPHILS % (AUTO) 10.5 % (1.0-6.0); HEMATOCRIT 32.6 % (36-46); HEMOGLOBIN 11.7 g/dL (12.0-16.0); LYMPHOCYTES # (AUTO) 0.5 K/uL (1.0-4.8); LYMPHOCYTES % (AUTO) 7.1 % (22.0-44.0); MEAN CORPUSCULAR HGB CONC 35.8 G/dL (31.0-37.0); MEAN CORPUSCULAR VOLUME 95 fL (80-100); MONOCYTES # (AUTO) 0.7 K/uL (0.1-1.0); MONOCYTES % (AUTO) 10.4 % (2.0-9.0); NEUTROPHILS # (AUTO) 4.9 K/uL (1.8-7.7); NEUTROPHILS % (AUTO) 71.9 % (40.0-70.0); PLATELET COUNT (AUTO) 266 K/uL (150-450); RED BLOOD CELL COUNT(AUTO) 3.43 MIL/uL (4.00-5.20); RED CELL DISTRIBUTION WIDTH 14.8 % (11.5-14.5)
[2018-11-15 07:00] LABS: GLUCOMETER DEV NAME(LOC) 5S.2A; GLUCOSE,POINT OF CARE 82 MG/DL (70-110)
[2018-11-15 07:01] LABS: GLUCOMETER DEV NAME(LOC) 5S.2A; GLUCOSE,POINT OF CARE 86 MG/DL (70-110)
[2018-11-15 07:01] LABS: GLUCOMETER DEV NAME(LOC) 5S.2A; GLUCOSE,POINT OF CARE 106 MG/DL (70-110)
[2018-11-15 07:02] LABS: BILIRUBIN,TOTAL 0.5 mg/dL (0.1-1.0); CREATININE 3.81 mg/dL (0.60-1.30); POTASSIUM 3.6 mmol/L (3.5-5.1); TOTAL PROTEIN, SERUM 6.5 g/dL (6.4-8.2)
[2018-11-15 08:25] VITALS: BP 140/72
[2018-11-15] MEDS: FLUTICASONE PROPIONATE 50 MCG/SPRAY 16 GM NASAL SPRAY NASAL SCH (08:55)
[2018-11-15] MEDS: FAMOTIDINE 10 MG/ML 2 ML VIAL IVP SCH ×2 (08:55→21:04)
[2018-11-15] MEDS: INSULIN LISPRO 100 UNITS/ML SQ PRN ×2 (11:30→21:37)
[2018-11-15 12:01] VITALS: BP 145/78
[2018-11-15 16:53] VITALS: BP 137/77
[2018-11-15 20:05] VITALS: BP 136/76
[2018-11-16 00:01] VITALS: BP 137/73
[2018-11-16 04:36] VITALS: BP 144/79
[2018-11-16] MEDS: PIPERACILLIN SODIUM/TAZOBACTAM 2.25 GM in DEXTROSE 5%-WATER 50 ML IV SCH ×2 (04:46→13:00)
[2018-11-16 05:36] LABS: GLUCOMETER DEV NAME(LOC) 5N.2; GLUCOSE,POINT OF CARE 133 MG/DL (70-110)
[2018-11-16 05:36] LABS: GLUCOMETER DEV NAME(LOC) 5S.2A; GLUCOSE,POINT OF CARE 223 MG/DL (70-110)
[2018-11-16 05:36] LABS: GLUCOMETER DEV NAME(LOC) 5S.2A; GLUCOSE,POINT OF CARE 177 MG/DL (70-110)
[2018-11-16 06:35] LABS: BASOPHILS % (AUTO) 0.9 % (0.0-2.0); EOSINOPHILS % (AUTO) 9.4 % (1.0-6.0); HEMATOCRIT 32.7 % (36-46); HEMOGLOBIN 11.1 g/dL (12.0-16.0); LYMPHOCYTES # (AUTO) 0.7 K/uL (1.0-4.8); LYMPHOCYTES % (AUTO) 9.1 % (22.0-44.0); MEAN CORPUSCULAR HEMOGLOBIN 32.5 pg (26.0-34.0); MEAN CORPUSCULAR VOLUME 95 fL (80-100); MONOCYTES # (AUTO) 0.8 K/uL (0.1-1.0); MONOCYTES % (AUTO) 10.8 % (2.0-9.0); NEUTROPHILS # (AUTO) 5.5 K/uL (1.8-7.7); NEUTROPHILS % (AUTO) 69.8 % (40.0-70.0); PLATELET COUNT (AUTO) 249 K/uL (150-450); RED BLOOD CELL COUNT(AUTO) 3.43 MIL/uL (4.00-5.20); RED CELL DISTRIBUTION WIDTH 14.7 % (11.5-14.5)
[2018-11-16 07:05] VITALS: BP 147/76
[2018-11-16 08:31] LABS: GLUCOMETER DEV NAME(LOC) 5S.1; GLUCOSE,POINT OF CARE 129 MG/DL (70-110)
[2018-11-16] MEDS: FAMOTIDINE 10 MG/ML 2 ML VIAL IVP SCH (08:49)
[2018-11-16] MEDS: FLUTICASONE PROPIONATE 50 MCG/SPRAY 16 GM NASAL SPRAY NASAL SCH (08:49)
[2018-11-16] MEDS ORDERED: SODIUM CHLORIDE 0.9% 2,000 ML IV ONE (10:50)
[2018-11-16 11:31] VITALS: BP 174/94
[2018-11-16] MEDS ORDERED: METR500 PO (13:13)
[2018-11-16 15:25] VITALS: BP 136/79
[2018-11-16 20:46] LABS: GLUCOMETER DEV NAME(LOC) 5N.2; GLUCOSE,POINT OF CARE 198 MG/DL (70-110)
== END 2018-11-16 17:45 | disposition home or self-care (01) | DRG 438 ==
LOC: EMS 21:26 → 5S 11-09 04:30
PROVIDERS: ADMIT Internal Medicine; ATTEND Internal Medicine
PROC: 0D9670Z Drainage of Stomach with Drainage Device, Via Natural or Artificial Opening (ICD-10-PCS; principal; 2018-11-09)
PROC: 5A1D70Z Performance of Urinary Filtration, Intermittent, Less than 6 Hours Per Day (ICD-10-PCS; 2018-11-09)
PROC: 5A1D70Z Performance of Urinary Filtration, Intermittent, Less than 6 Hours Per Day (ICD-10-PCS; 2018-11-10)
PROC: 5A1D70Z Performance of Urinary Filtration, Intermittent, Less than 6 Hours Per Day (ICD-10-PCS; 2018-11-12)
PROC: 5A1D70Z Performance of Urinary Filtration, Intermittent, Less than 6 Hours Per Day (ICD-10-PCS; 2018-11-14)
PROC: 5A1D70Z Performance of Urinary Filtration, Intermittent, Less than 6 Hours Per Day (ICD-10-PCS; 2018-11-16)
DX: K85.90 Acute pancreatitis without necrosis or infection, unspecified (principal); N18.6 End stage renal disease; K56.609 Unspecified intestinal obstruction, unspecified as to partial versus complete obstruction; E87.1 Hypo-osmolality and hyponatremia; K43.0 Incisional hernia with obstruction, without gangrene; I12.0 Hypertensive chronic kidney disease with stage 5 chronic kidney disease or end stage renal disease; K56.600 Partial intestinal obstruction, unspecified as to cause; E11.65 Type 2 diabetes mellitus with hyperglycemia; E87.5 Hyperkalemia; E78.5 Hyperlipidemia, unspecified; E11.22 Type 2 diabetes mellitus with diabetic chronic kidney disease; E78.00 Pure hypercholesterolemia, unspecified; K43.2 Incisional hernia without obstruction or gangrene; E11.21 Type 2 diabetes mellitus with diabetic nephropathy; E11.69 Type 2 diabetes mellitus with other specified complication; D64.9 Anemia, unspecified; Z99.2 Dependence on renal dialysis; Z88.8 Allergy status to other drugs, medicaments and biological substances
CPT/HCPCS: 74177; 74181; 74250; 76705; 84439; 84443; 87081; 87340; 93005; 94640; 99291; J0610; J1815; J1956; J2405; J2543; J3490; J7030; J7040; J7042; J7050; J7060